=== PATIENT | male | born 1950 | race Caucasian/White ===

== ENCOUNTER 2018-07-23 13:40 | Inpatient (IN) ==
--- NOTE | 2018-07-23 15:01 | Emergency Department Note ---
Disposition General Adult HPI - General Chief complaint: ED Abdominal Pain Stated complaint: Left flank pain Time Seen by Provider: 07/23/18 14:57 Source: other Limitations: physical limitation, other - History of Present Illness Pain Scale: 0 - Related Data Home Medications Medication Instructions Recorded Confirmed Acetaminophen [Tylenol] 650 mg PO Q4HR PRN 12/04/16 03/06/17 Atorvastatin [Lipitor] 40 mg PO HS 12/04/16 03/06/17 Calcium Carbonate [Tums] 500 - 1,000 mg PO Q4HR PRN 12/04/16 03/06/17 Docusate Sodium [Stool Softener] 100 mg PO BID 12/04/16 03/06/17 Ferrous Sulfate [Iron] 325 mg PO TID 12/04/16 03/06/17 Folic Acid 1 mg PO DAILY 12/04/16 03/06/17 Levothyroxine Sodium [Levoxyl] 50 mcg PO DAILY 12/04/16 03/06/17 Loperamide [Imodium] 2 mg PO Q4HR PRN 12/04/16 03/06/17 Loratadine [Allergy Relief] 10 mg PO DAILY 12/04/16 03/06/17 Lurasidone [Latuda] 40 mg PO DAILY 12/04/16 03/06/17 Multivit,Th Iron,Other Min 1 tab PO DAILY 12/04/16 03/06/17 [Thera-M] Omeprazole [PriLOSEC] 20 mg PO DAILY 12/04/16 03/06/17 Potassium Chloride [K-Tab ER] 20 meq PO DAILY 12/04/16 03/06/17 Prochlorperazine Maleate 5 mg PO Q6H PRN 12/04/16 03/06/17 [Compazine] Rivaroxaban [Xarelto] 20 mg PO DAILY 12/04/16 03/06/17 Sennosides/Docusate Sodium 1 tab PO QAM 12/04/16 03/06/17 [Senna-S Tablet] Sertraline [Zoloft] 150 mg PO DAILY 12/04/16 03/06/17 Sucralfate [Carafate] 1 gm PO BID 12/04/16 03/06/17 MOM Conc [MILK OF MAGNESIA conc] 30 ml PO DAILY PRN 03/06/17 03/06/17 Mupirocin [Bactroban Oint] 1 appl TP BID 03/06/17 03/06/17 diazePAM [Valium] 10 - 30 mg PO DAILY PRN 03/06/17 03/06/17 Previous Rx's Medication Instructions Recorded HYDROcodone/Acet 7.5/325 mg [[place] 1 tab PO Q4-6H PRN #30 tablet 02/03/17 7.5-325 mg] Promethazine [Phenergan] 25 mg PO Q6HR PRN #8 tablet 05/11/17 Acetaminophen [Pain Reliever] 1,000 mg PO TID PRN #100 tablet 07/23/18 Ciprofloxacin [Cipro] 500 mg PO BID 7 Days #14 tablet 07/23/18 Allergies Allergy/AdvReac Type Severity Reaction Status Date / Time No Known Allergies Allergy Verified 07/23/18 11:48 Past Medical History - Past Medical History Medical history: Reports: GERD, other Surgical history: Reports: other (EGD/colonoscopy 2016) Psychiatric history: Reports: anxiety, other - Social History Smoking Status: Never smoker Smokeless Tobacco Status: No Alcohol use: Reports: none Drug use: Reports: none Physical Exam - General Limitations: physical limitation, other General appearance: alert, in no apparent distress Course Vital Signs Temperature 95.5 F L 07/23/18 14:19 Pulse Rate 69 07/23/18 14:19 Respiratory Rate 16 07/23/18 14:19 Blood Pressure 106/70 07/23/18 14:19 O2 Sat by Pulse Oximetry 96 07/23/18 14:19 Temperature 95.5 F L 07/23/18 14:19 Pulse Rate 69 07/23/18 14:19 Respiratory Rate 16 07/23/18 14:19 Blood Pressure 106/70 07/23/18 14:19 O2 Sat by Pulse Oximetry 96 07/23/18 14:19 Oxygen Delivery Oxygen Delivery Room Air
--- NOTE | 2018-07-23 15:37 | Emergency Department Note ---
Disposition Clinical Impression: Pancreatic mass, Liver metastasis, Malignant pleural effusion Chest pain Qualifiers: Chest pain type: unspecified Qualified Code(s): R07.9 - Chest pain, unspecified Anemia Qualifiers: Anemia type: unspecified type Qualified Code(s): D64.9 - Anemia, unspecified Disposition: Admitted As Inpatient Condition: Serious Referrals: Sakina Castellano MD [Primary Care Provider] - Forms: ED Satisfaction Letter, Work/School Release Abdominal Pain HPI - General Chief Complaint: ED Abdominal Pain Stated Complaint: Left flank pain Time Seen by Provider: 07/23/18 14:57 Source: patient, other Mode of arrival: ambulatory Limitations: no limitations Nursing Notes Reviewed: Yes Vital Signs Reviewed: Yes - History of Present Illness HPI Narrative: Patient presenting with caretakers for evaluation of left-sided chest/flank pain. Patient's symptoms started 3 days ago. Patient has been complaining of pain to the side but is unable to further communicate given his disability. P nataliya does not have any associated bruising or other significant signs. He has been eating and drinking well. He has not had any abnormal bowel movements. Patient has not had any other noticed abnormalities. Nose fevers or cough or sputum production. Patient did have a abdominal x-ray and urinalysis performed at urgent care which were nonspecific. Patient's did have his labs evaluated. From February patient was significantly anemic. Patient's is on Zaroxolyn no secondary to previous DVT. Patient will undergo further blood work as well as chest x-ray and EKG evaluation. I did discuss with [facility] and discussed the case with Deysi at 1520. They approve further investigation at this time. Pain Scale: 0 - Related Data Home Medications Medication Instructions Recorded Confirmed Acetaminophen [Tylenol] 650 mg PO Q4HR PRN 12/04/16 03/06/17 Atorvastatin [Lipitor] 40 mg PO HS 12/04/16 03/06/17 Calcium Carbonate [Tums] 500 - 1,000 mg PO Q4HR PRN 12/04/16 03/06/17 Docusate Sodium [Stool Softener] 100 mg PO BID 12/04/16 03/06/17 Ferrous Sulfate [Iron] 325 mg PO TID 12/04/16 03/06/17 Folic Acid 1 mg PO DAILY 12/04/16 03/06/17 Levothyroxine Sodium [Levoxyl] 50 mcg PO DAILY 12/04/16 03/06/17 Loperamide [Imodium] 2 mg PO Q4HR PRN 12/04/16 03/06/17 Loratadine [Allergy Relief] 10 mg PO DAILY 12/04/16 03/06/17 Lurasidone [Latuda] 40 mg PO DAILY 12/04/16 03/06/17 Multivit,Th Iron,Other Min 1 tab PO DAILY 12/04/16 03/06/17 [Thera-M] Omeprazole [PriLOSEC] 20 mg PO DAILY 12/04/16 03/06/17 Potassium Chloride [K-Tab ER] 20 meq PO DAILY 12/04/16 03/06/17 Prochlorperazine Maleate 5 mg PO Q6H PRN 12/04/16 03/06/17 [Compazine] Rivaroxaban [Xarelto] 20 mg PO DAILY 12/04/16 03/06/17 Sennosides/Docusate Sodium 1 tab PO QAM 12/04/16 03/06/17 [Senna-S Tablet] Sertraline [Zoloft] 150 mg PO DAILY 12/04/16 03/06/17 Sucralfate [Carafate] 1 gm PO BID 12/04/16 03/06/17 MOM Conc [MILK OF MAGNESIA conc] 30 ml PO DAILY PRN 03/06/17 03/06/17 Mupirocin [Bactroban Oint] 1 appl TP BID 03/06/17 03/06/17 diazePAM [Valium] 10 - 30 mg PO DAILY PRN 03/06/17 03/06/17 Previous Rx's Medication Instructions Recorded HYDROcodone/Acet 7.5/325 mg [[place] 1 tab PO Q4-6H PRN #30 tablet 02/03/17 7.5-325 mg] Promethazine [Phenergan] 25 mg PO Q6HR PRN #8 tablet 05/11/17 Acetaminophen [Pain Reliever] 1,000 mg PO TID PRN #100 tablet 07/23/18 Ciprofloxacin [Cipro] 500 mg PO BID 7 Days #14 tablet 07/23/18 Allergies Allergy/AdvReac Type Severity Reaction Status Date / Time No Known Allergies Allergy Verified 07/23/18 11:48 Limitations: ROS unobtainable due to patients medical condition Abdominal Pain PMH - Past Medical History Medical history: Reports: GERD, other Male Surgical History: Reports: other Psychiatric history: Reports: anxiety, other - Social History Smoking status: Never smoker Alcohol use: Reports: none Drug use: Reports: none Physical Exam General: Patient able to say yes and no, resting in wheelchair, mildly pale but in no acute distress, nontoxic. Head: Normocephalic Atraumatic Eyes: PERRL, EOMI ENT: Airway patent, no stridor Neck: supple, no meningismus Chest: Lungs clear to auscultation bilateral Cardiac: Regular rate and rhythm, no murmurs, rubs or gallops Abdomen: soft, nontender, nondistended; no guarding, rebound, or tenderness to percussion Musculoskeletal: Calves symmetric, nontender. Skin: No rash, normal skin tone. Neuro: Patient is awake alert but unable to further test orientation secondary to disability. Patient points to the left side of his lateral chest. Patient does not point to the lower ribs or specific flank pain. Patient has mild tenderness to palpation. Patient does not want to be touched in that area after initial evaluation. Patient has no tenderness to the posterior aspect of the ribs. Patient's abdomen is soft nontender to palpation. - General Limitations: physical limitation, other General appearance: alert, in no apparent distress Course Course Narrative: Abdominal x-ray performed at urgent care without specific etiology. Patient's urinalysis nonspecific at urgent care. - Reevaluation(s) Reevaluation #1: Chest x-ray concerning for effusion. Is concerned about abnormal gas pattern on the left side. CT scan was ordered. CT scan showed significant pleural effusion so chest CT was performed at same time. Blood work was obtained secondary to previous low hemoglobin of 7.8 and continued to use. Patient CT scan concerning for pancreatic mass. The counselor at law says they have been told about this but none of the records or medications or hospital records show any mention of this. Oncology was called and the patient is appropriate stay here. They also have no mention or records of him within their system. The patient does not follow with any other hospitals. Patient will be further admitted for further workup. - Consultations Consultation #1: Discussed with oncology. Patient can undergo further workup at our facility. Patient may need biopsy by interventional radiology. Consultation #2: Discussed with hospitalist. Patient accepted for admission. Vital Signs Temperature 95.5 F L 07/23/18 14:19 Pulse Rate 69 07/23/18 14:19 Respiratory Rate 16 07/23/18 14:19 Blood Pressure 106/70 07/23/18 14:19 O2 Sat by Pulse Oximetry 96 07/23/18 14:19 Temperature 97.9 F 07/23/18 18:30 Pulse Rate 78 07/23/18 18:25 Respiratory Rate 18 07/23/18 18:25 Blood Pressure 124/78 07/23/18 18:25 O2 Sat by Pulse Oximetry 94 07/23/18 18:25 Oxygen Delivery Oxygen Delivery Room Air Abdominal Pain - Medical Records Medical records reviewed: Yes I reviewed the patient's medical records. - Lab Data Lab results reviewed: Yes I reviewed the patient's lab results. Result diagrams: 07/23/18 15:44 07/23/18 15:44 Lab Results 07/23/18 07/23/18 07/23/18 Range/Units 15:40 15:44 15:44 WBC 10.4 (4.3-11.1) K/mcL RBC 3.18 L (4.19-5.50) M/mcL Hgb 7.1 L (12.9-16.9) g/dL Hct 26.5 L (37.5-50.1) % MCV 83.3 (83.0-100.0) fL MCH 22.3 L (28.0-33.3) pg MCHC 26.8 L (31.6-35.5) g/dL RDW 22.3 H (11.5-14.5) % Plt Count 409 H (140-400) K/mcL MPV 9.4 (9.4-12.4) fL Immature Gran % 0.5 (0-4) % Seg Neutrophils % 75.7 % Lymphocytes % 15.5 % Monocytes % 6.6 % Eosinophils % 1.3 % Basophils % 0.4 % Neutrophils # 7.9 (1.6-8.9) K/mcL Lymphocytes # 1.6 (0.6-4.6) K/mcL Monocytes # 0.7 (0.0-1.3) K/mcL Eosinophils # 0.1 (0.0-0.6) K/mcL Basophils # 0.0 (0.0-0.2) K/mcL Nucleated RBCs/100 WBC 0.3 H (0) /100 WBC Platelet Estimate Normal (Normal) Hypochromasia Present A (Not Present) Anisocytosis 1+ A (Not Present) Sodium 139 (136-145) mEq/L Potassium 4.5 (3.5-5.1) mEq/L Chloride 107 (98-107) mEq/L Carbon Dioxide 23 (23-29) mEq/L BUN 21 (8-23) mg/dL Creatinine 0.70 (0.70-1.30) mg/dL Est GFR ( Amer) > 60 (> 60) Est GFR (Non-Af Amer) > 60 (> 60) BUN/Creatinine Ratio 30 H (6-26) Glucose 146 H (70-105) mg/dL Calculated Osmolality 294 (280-300) Calcium 8.6 (8.6-10.3) mg/dL Total Bilirubin 0.5 (0.3-1.0) mg/dL Direct Bilirubin 0.2 (0.0-0.2) mg/dL Indirect Bilirubin 0.3 (0.0-1.2) mg/dL AST 32 (13-39) Units/L ALT 12 (7-52) Units/L Alkaline Phosphatase 131 H (34-104) Units/L Troponin I < 0.03 (< 0.04) ng/mL B-Natriuretic Peptide (Less than 100) pg/mL Serum Total Protein 7.5 (6.4-8.9) g/dL Albumin 2.8 L (3.5-5.7) g/dL Globulin 4.7 H (2.4-3.5) g/dL Albumin/Globulin Ratio 0.6 L (1.1-2.2) Lipase 50 (11-82) Units/L Blood Type B POSITIVE Antibody Screen NEGATIVE 07/23/18 Range/Units 15:44 WBC (4.3-11.1) K/mcL RBC (4.19-5.50) M/mcL Hgb (12.9-16.9) g/dL Hct (37.5-50.1) % MCV (83.0-100.0) fL MCH (28.0-33.3) pg MCHC (31.6-35.5) g/dL RDW (11.5-14.5) % Plt Count (140-400) K/mcL MPV (9.4-12.4) fL Immature Gran % (0-4) % Seg Neutrophils % % Lymphocytes % % Monocytes % % Eosinophils % % Basophils % % Neutrophils # (1.6-8.9) K/mcL Lymphocytes # (0.6-4.6) K/mcL Monocytes # (0.0-1.3) K/mcL Eosinophils # (0.0-0.6) K/mcL Basophils # (0.0-0.2) K/mcL Nucleated RBCs/100 WBC (0) /100 WBC Platelet Estimate (Normal) Hypochromasia (Not Present) Anisocytosis (Not Present) Sodium (136-145) mEq/L Potassium (3.5-5.1) mEq/L Chloride (98-107) mEq/L Carbon Dioxide (23-29) mEq/L BUN (8-23) mg/dL Creatinine (0.70-1.30) mg/dL Est GFR ( Amer) (> 60) Est GFR (Non-Af Amer) (> 60) BUN/Creatinine Ratio (6-26) Glucose (70-105) mg/dL Calculated Osmolality (280-300) Calcium (8.6-10.3) mg/dL Total Bilirubin (0.3-1.0) mg/dL Direct Bilirubin (0.0-0.2) mg/dL Indirect Bilirubin (0.0-1.2) mg/dL AST (13-39) Units/L ALT (7-52) Units/L Alkaline Phosphatase (34-104) Units/L Troponin I (< 0.04) ng/mL B-Natriuretic Peptide 58 (Less than 100) pg/mL Serum Total Protein (6.4-8.9) g/dL Albumin (3.5-5.7) g/dL Globulin (2.4-3.5) g/dL Albumin/Globulin Ratio (1.1-2.2) Lipase (11-82) Units/L Blood Type Antibody Screen - Radiology Data Radiology results reviewed: Yes I reviewed the patient's radiology results. - EKG Data EKG attestation: Yes I reviewed and interpreted this EKG. EKG results narrative: EKG shows sinus rhythm with heart rate of 96 MO 134 QRS 78 QTC 467 there is no significant ST elevations or depressions. EKG without significant change from 08/05/14. Prior EKG does have significant artifact.
[2018-07-23 16:17] LABS: Basophils % 0.4 %; Eosinophils # 0.1 K/mcL (0.0-0.6); Eosinophils % 1.3 %; Hematocrit 26.5 % (37.5-50.1); Hemoglobin 7.1 g/dL (12.9-16.9); Immature Granulocytes % 0.5 % (0-4); Lymphocytes # 1.6 K/mcL (0.6-4.6); Lymphocytes % 15.5 %; Mean Corpuscular HGB Conc 26.8 g/dL (31.6-35.5); Mean Corpuscular Hemoglobin 22.3 pg (28.0-33.3); Mean Corpuscular Volume 83.3 fL (83.0-100.0); Mean Platelet Volume 9.4 fL (9.4-12.4); Monocytes # 0.7 K/mcL (0.0-1.3); Monocytes % 6.6 %; Neutrophils # 7.9 K/mcL (1.6-8.9); Nucleated Red Blood Cells 0.3 /100 WBC (0); Platelet Count 409 K/mcL (140-400); Red Blood Count 3.18 M/mcL (4.19-5.50); Red Cell Distribution Width 22.3 % (11.5-14.5); Segmented Neutrophils % 75.7 %
[2018-07-23 16:18] LABS: Anisocytosis 1+ (Not Present); Hypochromasia Present (Not Present); Platelet Estimate Normal (Normal)
[2018-07-23 16:25] LABS: Alanine Aminotransferase 12 Units/L (7-52); Albumin 2.8 g/dL (3.5-5.7); Albumin/Globulin Ratio 0.6 (1.1-2.2); Alkaline Phosphatase 131 Units/L (34-104); Aspartate Amino Transferase 32 Units/L (13-39); BUN/Creatinine Ratio 30 (6-26); Bilirubin,Direct 0.2 mg/dL (0.0-0.2); Bilirubin,Indirect 0.3 mg/dL (0.0-1.2); Bilirubin,Total 0.5 mg/dL (0.3-1.0); Blood Urea Nitrogen 21 mg/dL (8-23); Calcium 8.6 mg/dL (8.6-10.3); Carbon Dioxide 23 mEq/L (23-29); Chloride 107 mEq/L (98-107); Globulin 4.7 g/dL (2.4-3.5); Glucose 146 mg/dL (70-105); Lipase 50 Units/L (11-82); Osmolality,Calculated 294 (280-300); Potassium 4.5 mEq/L (3.5-5.1); Sodium 139 mEq/L (136-145); Total Protein 7.5 g/dL (6.4-8.9); eGFR For Non-African Americans > 60 (> 60)
[2018-07-23 16:26] LABS: Troponin I < 0.03 ng/mL (< 0.04)
[2018-07-23] MEDS ORDERED: Haloperidol Lactate 5 MG/ML VIAL IVP ONE (18:09)
[2018-07-23] MEDS ORDERED: 0.9 % Sodium Chloride 1,000 ML IVC ONE (19:33)
[2018-07-23] MEDS ORDERED: OXYCODONE Oral CONC 10 MG/0.5 ML ORAL.SYG SL PRN (21:16)
[2018-07-23] MEDS ORDERED: Naloxone 0.4 MG/ML INJ IVP PRN (21:16)
--- NOTE | 2018-07-23 21:52 | Internal Med History&Physical ---
<Robyn Devlin - Last Filed: 07/23/18 23:16> Date of Encounter: 07/23/18 Time of Encounter: 21:15 Internal Medicine - H&P: HPI Chief complaint: abdominal pain Admitted From: Emergency Dept History of present illness: Mr. Duarte is a 67 year old male with history of developmental delay, prostate cancer on injection therapy, and previous DVT. Lives in skilled nursing. Patient cannot provide history due to developmental delay. History is obtained from caregiver in room. Patient presents for left lateral abdominal pain for 2 days. Caregiver thought it was gas and patient was given tums. This morning, he was screaming of pain. Caregiver notes he was clammy. He was taken to urgent care. Patient was given Tylenol and told its possibly a UTI and urine culture was sent. Patient continued to scream and was sent to ER. Caregiver admits he hasnt been eating as much since April. Denies any other symptoms including fever, vomiting, cough, bowel changes, urinary changes. Upon presentation to [facility], patient was afebrile and vitals stable. CT chest showed moderate-large right pleural effusion. CT abd/pelvis showed large pancreatic mass with liver mets. Oncology was consulted and patient was admitted for further workup. Past Med Surg Social Fam HX - Past Medical History Medical history: GERD, other Additional medical history: SEIZURES, PVD, HYPERTENSION, HYPERLIPIDEMIA Psychiatric history: anxiety, other - Past Surgical History Surgical History: other (EGD/colonoscopy 2016) Additional surgical history: Cleft palette and lip repair. Basal Cell Carcinoma removed 2002. END removal gallstones 2014 - Social History Smoking Status: Never smoker Smokeless Tobacco Status: No Alcohol use: none Drug use: none Internal Medicine - H&P: Meds RX: Acetaminophen [Tylenol] 650 mg PO Q4HR PRN 12/04/16 [History] RX: Atorvastatin [Lipitor] 40 mg PO HS 12/04/16 [History] RX: Calcium Carbonate [Tums] 500 - 1,000 mg PO Q4HR PRN 12/04/16 [History] RX: Docusate Sodium [Stool Softener] 100 mg PO BID 12/04/16 [History] RX: Ferrous Sulfate [Iron] 325 mg PO TID 12/04/16 [History] RX: Folic Acid 1 mg PO DAILY 12/04/16 [History] RX: Levothyroxine Sodium [Levoxyl] 50 mcg PO DAILY 12/04/16 [History] RX: Loperamide [Imodium] 2 mg PO Q4HR PRN 12/04/16 [History] RX: Loratadine [Allergy Relief] 10 mg PO DAILY 12/04/16 [History] RX: Lurasidone [Latuda] 40 mg PO DAILY 12/04/16 [History] RX: Multivit,Th Iron,Other Min [Thera-M] 1 tab PO DAILY 12/04/16 [History] RX: Omeprazole [PriLOSEC] 20 mg PO DAILY 12/04/16 [History] RX: Potassium Chloride [K-Tab ER] 20 meq PO DAILY 12/04/16 [History] RX: Prochlorperazine Maleate [Compazine] 5 mg PO Q6H PRN 12/04/16 [History] RX: Rivaroxaban [Xarelto] 20 mg PO DAILY 12/04/16 [History] RX: Sennosides/Docusate Sodium [Senna-S Tablet] 1 tab PO QAM 12/04/16 [History] RX: Sertraline [Zoloft] 150 mg PO DAILY 12/04/16 [History] RX: Sucralfate [Carafate] 1 gm PO BID 12/04/16 [History] RX: HYDROcodone/Acet 7.5/325 mg [[place] 7.5-325 mg] 1 tab PO Q4-6H PRN #30 tablet 02/03/17 [Rx] RX: MOM Conc [MILK OF MAGNESIA conc] 30 ml PO DAILY PRN 03/06/17 [History] RX: Mupirocin [Bactroban Oint] 1 appl TP BID 03/06/17 [History] RX: diazePAM [Valium] 10 - 30 mg PO DAILY PRN 03/06/17 [History] Promethazine [Phenergan] 25 mg PO Q6HR PRN #8 tablet 05/11/17 [Rx] Ciprofloxacin [Cipro] 500 mg PO BID 7 Days #14 tablet 07/23/18 [Rx] RX: Acetaminophen [Pain Reliever] 1,000 mg PO TID PRN #100 tablet 07/23/18 [Rx] Allergy/AdvReac Type Severity Reaction Status Date / Time No Known Allergies Allergy Verified 07/23/18 11:48 ROS unobtainable: other (developmental delay ) All Systems PM: A 10-system review of systems was performed and is negative for pertinent findings except as documented above in the HPI. - Constitutional Vitals: Temp Pulse Resp BP Pulse Ox 97.9 F 68 18 99/68 97 07/23/18 18:30 07/23/18 20:30 07/23/18 20:30 07/23/18 20:30 07/23/18 20:30 General appearance: Absent: cooperative Exam: no acute distress. Comfortably eating sandwich and drinking coke - Head Head exam: Present: atraumatic, normal inspection, normocephalic - Eye Eye exam: Present: EOMI, PERRL, sclera anicteric - Neck Neck exam general surgery: Present: normal inspection - Respiratory Respiratory exam: Present: CTAB. Absent: respiratory distress, tachypnea - Cardiovascular Cardiovascular exam: Present: RRR, +S1, +S2. Absent: systolic murmur, tachycardia - GI/Abdominal GI/Abdominal exam: Present: distended, mass (epigastric), normal bowel sounds, no peritoneal signs. Absent: tenderness - Extremities Exam Extremities exam: Present: pedal edema (left ), warm. Absent: calf tenderness, cyanotic, joint swelling, mottling - Neurological Exam Neurological exam: Present: CN II-XII intact - Skin Skin exam: Present: dry, intact, warm Internal Med - H&P Results - Labs CBC & Chem 7: 07/23/18 15:44 07/23/18 15:44 Labs: Short CBC 07/23/18 Range/Units 15:44 WBC 10.4 (4.3-11.1) K/mcL Hgb 7.1 L (12.9-16.9) g/dL Hct 26.5 L (37.5-50.1) % Plt Count 409 H (140-400) K/mcL Neutrophils # 7.9 (1.6-8.9) K/mcL BMP 07/23/18 15:44 Sodium 139 Potassium 4.5 Chloride 107 Carbon Dioxide 23 BUN 21 Creatinine 0.70 Glucose 146 H Calcium 8.6 Cardiac Enzymes 07/23/18 Range/Units 15:44 Troponin I < 0.03 (< 0.04) ng/mL Liver Function 07/23/18 Range/Units 15:44 Total Bilirubin 0.5 (0.3-1.0) mg/dL Direct Bilirubin 0.2 (0.0-0.2) mg/dL AST 32 (13-39) Units/L ALT 12 (7-52) Units/L Alkaline Phosphatase 131 H (34-104) Units/L Albumin 2.8 L (3.5-5.7) g/dL - Impressions ITS Impressions Chest CT 07/23/18 00:00 IMPRESSION: Moderate to large right pleural effusion. Etiology is not entirely clear, but given the findings elsewhere, may represent a malignant effusion. Left upper lobe nodule measuring 7 mm. Please refer to the concurrent CT abdomen pelvis report. D/ / Elias Jaime MD / Elias Jaime MD Interpreting Provider: Elias Jaime MD Chest X-Ray 07/23/18 15:29 IMPRESSION: Limited rotated portable chest x-ray. Right greater than left bilateral airspace disease suspected to be due to edema and atelectasis, less likely pneumonia. Moderate-sized right pleural effusion. D/ / Aftab Davalos MD / Aftab Davalos MD Interpreting Provider: Aftab Davalos MD Abdomen/Pelvis CT 07/23/18 17:19 IMPRESSION: Large mass seen within the midportion of the abdomen likely arising from the pancreas measuring 19 cm x 14 cm in size which is compressing the stomach and duodenum. There is no bowel obstruction. Significant distention of the gallbladder likely secondary to pancreatic mass. Metastatic lesion seen to the right lobe of the liver measuring 7.4 cm x 6.1 cm in size. D/ / 07/23/2018 18:25:37 Be Chambers MD / jean-pierre Interpreting Provider: Be Chambers MD - Assessment and Plan (1) Pancreatic mass Current Visit: Yes Status: Acute Assessment and plan: CT abd/pelvis shows large pancreatic mass compressing stomach and duodenum Check tumor markers: CA19-9, AFP, CEA Oncology consulted Consult GI (2) Liver metastasis Current Visit: Yes Status: Acute Assessment and plan: CT abd/pelvis shows large pancreatic mass with liver mets See plan above (3) Malignant pleural effusion Current Visit: Yes Status: Acute Assessment and plan: CT chest shows moderate-large right pleural effusion Suspect malignant considering large pancreatic mass found on imaging Consult IR for diagnostic thoracentesis Pleural fluid studies including glucose, pH, LDH, gram stain, culture, cell count, and cytology NPO after midnight, IVF (4) Anemia Current Visit: Yes Status: Chronic Assessment and plan: Hb of 7.1 Appears chronic. 5 months ago, Hb of 7.8 Monitor Transfuse if Hb <7.0 Qualifiers: Anemia type: unspecified type Qualified Code(s): D64.9 - Anemia, unspecified (5) History of DVT (deep vein thrombosis) Current Visit: Yes Status: Chronic Assessment and plan: History of DVT On xarelto Hold xarelto in anticipation of thoracentesis (6) Prostate cancer Current Visit: Yes Status: Acute Assessment and plan: History of prostate cancer On injection therapy Last injection in April (7) History of developmental delay Current Visit: Yes Status: Chronic Assessment and plan: History of developmental delay - Time Spent With Patient Total time spent is greater than 50% in coordination of care (as documented) at patient's floor/unit and/or counseling patient: <Hakeem Balderrama - Last Filed: 07/24/18 00:07> Date of Encounter: 07/23/18 All Systems PM: A 10-system review of systems was performed and is negative for pertinent findings except as documented above in the HPI. - Constitutional Vitals: Temp Pulse Resp BP Pulse Ox 97.9 F 68 18 99/68 97 07/23/18 18:30 07/23/18 20:30 07/23/18 20:30 07/23/18 20:30 07/23/18 20:30 Internal Med - H&P Results - Labs CBC & Chem 7: 07/23/18 15:44 07/23/18 15:44 Labs: Short CBC 07/23/18 Range/Units 15:44 WBC 10.4 (4.3-11.1) K/mcL Hgb 7.1 L (12.9-16.9) g/dL Hct 26.5 L (37.5-50.1) % Plt Count 409 H (140-400) K/mcL Neutrophils # 7.9 (1.6-8.9) K/mcL BMP 07/23/18 15:44 Sodium 139 Potassium 4.5 Chloride 107 Carbon Dioxide 23 BUN 21 Creatinine 0.70 Glucose 146 H Calcium 8.6 Cardiac Enzymes 07/23/18 Range/Units 15:44 Troponin I < 0.03 (< 0.04) ng/mL Liver Function 07/23/18 Range/Units 15:44 Total Bilirubin 0.5 (0.3-1.0) mg/dL Direct Bilirubin 0.2 (0.0-0.2) mg/dL AST 32 (13-39) Units/L ALT 12 (7-52) Units/L Alkaline Phosphatase 131 H (34-104) Units/L Albumin 2.8 L (3.5-5.7) g/dL - Impressions ITS Impressions Chest CT 07/23/18 00:00 IMPRESSION: Moderate to large right pleural effusion. Etiology is not entirely clear, but given the findings elsewhere, may represent a malignant effusion. Left upper lobe nodule measuring 7 mm. Please refer to the concurrent CT abdomen pelvis report. D/ / Elias Jaime MD / Elias Jaime MD Interpreting Provider: Elias Jaime MD Chest X-Ray 07/23/18 15:29 IMPRESSION: Limited rotated portable chest x-ray. Right greater than left bilateral airspace disease suspected to be due to edema and atelectasis, less likely pneumonia. Moderate-sized right pleural effusion. D/ / Aftab Davalos MD / Aftab Davalos MD Interpreting Provider: Aftab Davalos MD Abdomen/Pelvis CT 07/23/18 17:19 IMPRESSION: Large mass seen within the midportion of the abdomen likely arising from the pancreas measuring 19 cm x 14 cm in size which is compressing the stomach and duodenum. There is no bowel obstruction. Significant distention of the gallbladder likely secondary to pancreatic mass. Metastatic lesion seen to the right lobe of the liver measuring 7.4 cm x 6.1 cm in size. D/ / 07/23/2018 18:25:37 Be Chambers MD / jean-pierre Interpreting Provider: Be Chambers MD - Time Spent With Patient Total time spent is greater than 50% in coordination of care (as documented) at patient's floor/unit and/or counseling patient: Greater than 35 minutes - Attending Attestation I performed a history and physical exam of the patient and discussed management with the resident. I reviewed the resident's note and agree with the documented findings and plan of care. Ankush Duarte is a 67 year old man with developmental delay, a history of DVT on rivaroxaban who was diagnosed with prostate adenocarcinoma in February 2017 presenting from his skilled nursing with complaints of left flank pain for 3 days. Of note, review of old records reveal that he complained of left sided stomach pain in October 2017, taken to urgent care and seen to have an air-fluid level on abdominal xray and therefore deemed to have constipation, Rx senna and MoM. Here, he is seen to be anemic with a Hgb 7.1, CXR depictive of a right pleural effusion and an abnormal abdominal gas pattern that prompted a f/u CT which r eveals a very large mass seemingly emanating from the pancreas and compressing the stomach and duodenum with a metastatic lesion to the liver. It is unclear if this was already a known entity as we have no prior record of this. Physical exam remarkable for a protuberant abdomen that is notably distended as well as a palpable ball-like mass on the epigastric area. We will admit for further evaluation. Will consult IR for therapeutic and diagnostic thoracentesis; transfuse pRBC if he drops below 7.0 to optimize his oxygen carrying capacity; consult oncology, GI and IR. Check CA 19-9, CEA and AFP. Note: The patients guardianship service is [employer].
[2018-07-24] MEDS: 0.9 % Sodium Chloride 1,000 ML IVC SCH (01:10)
--- NOTE | 2018-07-24 08:28 | Internal Med Progress Note ---
Hospitalist Progress Note - Encounter Date of Encounter: 07/24/18 Time of Encounter: 08:00 - Subjective Interval History: No acute events overnight. Hemoglobin low this am - Exam Vitals: Temp Pulse Resp BP Pulse Ox 98.8 F 85 18 110/71 92 07/24/18 06:33 07/24/18 06:33 07/24/18 06:33 07/24/18 06:33 07/24/18 06:33 Exam: General appearance: AAOx 2 Head exam: Present: normocephalic Respiratory exam: Present: CTAB. Absent: accessory muscle use, rales, rhonchi, wheezes Cardiovascular exam: Present: RRR, +S1, +S2. Absent: diastolic murmur, gallop, rubs, systolic murmur GI/Abdominal exam: Present: Epigastric tenderness to palpation on exam Extremities exam: Has contractures Neurological exam: Present: alert, - Assessment and Plan (1) Pancreatic mass Current Visit: Yes Status: Acute Assessment and Plan: CT abd/pelvis shows large pancreatic mass compressing stomach and duodenum Check tumor markers: CA19-9, AFP, CEA Oncology consulted.Patient has poor prognosis and palliative care has been consulted (2) Liver metastasis Current Visit: Yes Status: Acute Assessment and Plan: CT abd/pelvis shows large pancreatic mass with liver mets See plan above (3) Malignant pleural effusion Current Visit: Yes Status: Acute Assessment and Plan: CT chest shows moderate-large right pleural effusion Suspect malignant considering large pancreatic mass found on imaging Seen by pulmonary this am for thoracentesis which may not be feasible at bedside due to patient's inability to follow commands May need biopsy and thoracentesis under anesthesia if aggressive work up is pursued (4) Anemia Current Visit: Yes Status: Acute Assessment and Plan: Anemia possibly secondary to acute GI bleed vs due to malignancy Hemglobin dropped to 6.0 from 7.1 yesterday. transfuse [address] Mcgarry consulted for endoscopy but EGD not feasible due to large pancreatic mass (5) History of developmental delay Current Visit: Yes Status: Chronic Assessment and Plan: History of developmental delay (6) History of DVT (deep vein thrombosis) Current Visit: Yes Status: Chronic Assessment and Plan: History of DVT On xarelto Hold xarelto due to possible GI bleed DVT Prophylaxis: SCD - Time Spent with Patient Total time spent is greater than 50% in coordination of care (as documented) at patient's floor/unit and/or counseling patient: Internal Medicine: Result - Labs CBC & Chem 7: 07/24/18 10:40 07/24/18 10:40 Labs: Short CBC 07/23/18 Range/Units 15:44 WBC 10.4 (4.3-11.1) K/mcL Hgb 7.1 L (12.9-16.9) g/dL Hct 26.5 L (37.5-50.1) % Plt Count 409 H (140-400) K/mcL Neutrophils # 7.9 (1.6-8.9) K/mcL BMP 07/23/18 15:44 Sodium 139 Potassium 4.5 Chloride 107 Carbon Dioxide 23 BUN 21 Creatinine 0.70 Glucose 146 H Calcium 8.6 Cardiac Enzymes 07/23/18 Range/Units 15:44 Troponin I < 0.03 (< 0.04) ng/mL Liver Function 07/23/18 Range/Units 15:44 Total Bilirubin 0.5 (0.3-1.0) mg/dL Direct Bilirubin 0.2 (0.0-0.2) mg/dL AST 32 (13-39) Units/L ALT 12 (7-52) Units/L Alkaline Phosphatase 131 H (34-104) Units/L Albumin 2.8 L (3.5-5.7) g/dL - Impressions Impressions Chest CT 07/23/18 00:00 IMPRESSION: Moderate to large right pleural effusion. Etiology is not entirely clear, but given the findings elsewhere, may represent a malignant effusion. Left upper lobe nodule measuring 7 mm. Please refer to the concurrent CT abdomen pelvis report. D/ / Elias Jaime MD / Elias Jaime MD Interpreting Provider: Elias Jaime MD Chest X-Ray 07/23/18 15:29 IMPRESSION: Limited rotated portable chest x-ray. Right greater than left bilateral airspace disease suspected to be due to edema and atelectasis, less likely pneumonia. Moderate-sized right pleural effusion. D/ / Aftab Davalos MD / Aftab Davalos MD Interpreting Provider: Aftab Davalos MD Abdomen/Pelvis CT 07/23/18 17:19 IMPRESSION: Large mass seen within the midportion of the abdomen likely arising from the pancreas measuring 19 cm x 14 cm in size which is compressing the stomach and duodenum. There is no bowel obstruction. Significant distention of the gallbladder likely secondary to pancreatic mass. Metastatic lesion seen to the right lobe of the liver measuring 7.4 cm x 6.1 cm in size. D/ / 07/23/2018 18:25:37 Be Chambers MD / jean-pierre Interpreting Provider: Be Chambers MD Consult Discharge Plan - Plan Referrals: Sakina Castellano MD [Primary Care Provider] - (4) Anemia Qualifiers: Anemia type: unspecified type Qualified Code(s): D64.9 - Anemia, unspecified
[2018-07-24] MEDS ORDERED: *HR* LORazepam 2 MG/ML VIAL IVP PRN (09:53)
[2018-07-24] MEDS ORDERED: *HR* LORazepam 2 MG/ML VIAL IVP ONE (10:19)
--- NOTE | 2018-07-24 10:25 | Pulmonology Consult Note ---
Date of Encounter: 07/24/18 Time of Encounter: 10:24 Assessment and Plan (1) Pleural effusion Current Visit: Yes Status: Acute In conclusion this is a 67-year-old gentleman with a past medical history of MRDD complicated by his periods of severe agitation. Per nursing staff it took dosing of Ativan to get a simple blood draws patient was noncooperative. Given inability to have cooperation with the patient bedside thoracentesis is deemed unsafe. I suspect patient will need MAC or general anesthesia to get biopsy (likely done by IR) from pancreatic lesion and recommend coupling thoracentesis during that time. Patient can be evaluated in the future for Pleurx catheter placement based upon clinical course. Given that the patient is quite comf ortable from a respiratory standpoint and without any oxygen requirement there is no urgency to perform thoracentesis at this time which would require additional anesthesia. Agree with oncology and palliative care consultation I gave my impression and recommendations directly with the primary hospitalist Dr Aranda Thank you for the consultation please call with any questions (2) Pancreatic mass Current Visit: Yes Status: Acute (3) History of developmental delay Current Visit: Yes Status: Chronic History of Present Illness Consult date: 07/24/18 Requesting physician: Raul Aranda Reason for consult: pleural effusion Chief complaint: Abdominal Pain History of present illness: The patient is a 67-year-old gentleman with a past medical history of MRDD he was admitted for abdominal pain patient lives in a detention and is unable to provide any medical history in fact his been severely agitated throughout the day requiring benzodiazepine administration. There is no caregiver at bedside and thus medical history was obtained from the medical record the primary hospitalist and his nurse. Per report patient had been experiencing right-sided abdominal pain for several days leading up to admission a CT of the abdomen was performed in the emergency department which was notable for a pancreatic mass with suspected liver metastatic disease as well as a right-sided moderate to large pleural effusion concerning for malignant pleural effusion. Pulmonary was consulted for further evaluation of this. Patient currently not requiring any oxygen and appears comfortable in the bed. Although I asked him several different question he was unable to provide any answers. Of note patient per history has venous thromboembolism in the past and has been prescribed several to I am not sure the last dose of this medication but does not appear to be getting it since he has been here Past Med Surg Social Fam HX - Past Medical History Medical history: GERD, other Additional medical history: SEIZURES, PVD, HYPERTENSION, HYPERLIPIDEMIA Psychiatric history: anxiety, other - Past Surgical History Surgical History: other (EGD/colonoscopy 2016) Additional surgical history: Cleft palette and lip repair. Basal Cell Carcinoma removed 2002. END removal gallstones 2014 - Social History Smoking Status: Never smoker Smokeless Tobacco Status: No Alcohol use: none Drug use: none Medications and Allergies Acetaminophen [Tylenol] 650 mg PO Q4HR PRN 12/04/16 [History] Atorvastatin [Lipitor] 40 mg PO HS 12/04/16 [History] Calcium Carbonate [Tums] 500 - 1,000 mg PO Q4HR PRN 12/04/16 [History] Docusate Sodium [Stool Softener] 100 mg PO BID 12/04/16 [History] Ferrous Sulfate [Iron] 325 mg PO TID 12/04/16 [History] Folic Acid 1 mg PO DAILY 12/04/16 [History] Levothyroxine Sodium [Levoxyl] 50 mcg PO DAILY 12/04/16 [History] Loperamide [Imodium] 2 mg PO Q4HR PRN 12/04/16 [History] Loratadine [Allergy Relief] 10 mg PO DAILY 12/04/16 [History] Lurasidone [Latuda] 40 mg PO DAILY 12/04/16 [History] Multivit,Th Iron,Other Min [Thera-M] 1 tab PO DAILY 12/04/16 [History] Omeprazole [PriLOSEC] 20 mg PO DAILY 12/04/16 [History] Potassium Chloride [K-Tab ER] 20 meq PO DAILY 12/04/16 [History] Prochlorperazine Maleate [Compazine] 5 mg PO Q6H PRN 12/04/16 [History] Rivaroxaban [Xarelto] 20 mg PO DAILY 12/04/16 [History] Sennosides/Docusate Sodium [Senna-S Tablet] 1 tab PO QAM 12/04/16 [History] Sertraline [Zoloft] 150 mg PO DAILY 12/04/16 [History] Sucralfate [Carafate] 1 gm PO BID 12/04/16 [History] HYDROcodone/Acet 7.5/325 mg [[place] 7.5-325 mg] 1 tab PO Q4-6H PRN #30 tablet 02/03/17 [Rx] MOM Conc [MILK OF MAGNESIA conc] 30 ml PO DAILY PRN 03/06/17 [History] Mupirocin [Bactroban Oint] 1 appl TP BID 03/06/17 [History] diazePAM [Valium] 10 - 30 mg PO DAILY PRN 03/06/17 [History] Promethazine [Phenergan] 25 mg PO Q6HR PRN #8 tablet 05/11/17 [Rx] Acetaminophen [Pain Reliever] 1,000 mg PO TID PRN #100 tablet 07/23/18 [Rx] Ciprofloxacin [Cipro] 500 mg PO BID 7 Days #14 tablet 07/23/18 [Rx] Allergy/AdvReac Type Severity Reaction Status Date / Time No Known Allergies Allergy Verified 07/23/18 11:48 All Systems: The remainder of the systems were reviewed and are negative Physical Examination Vital Signs: Vital Signs, Last 4 Hours Temp Pulse Resp BP Pulse Ox 07/24/18 06:33 98.8 F 85 18 110/71 92 General appearance: no acute distress ENT: other (Poor dentition) Neck: supple, no JVD Effort: normal Auscultation: right: clear Cardiovascular: regular rate and rhythm Gastrointestinal: normoactive bowel sounds, soft, other (There was no grimace or guarding with deep palpation over the epigastrium or right upper quadrant) Extremities: edema (Trace bilateral pitting edema) Musculoskeletal: other (Long-standing contractures noted in the right upper extremity) pupils equal and round, unable to assess due to mental status, other other (Appears comfortable at this time) Results - Laboratory Findings CBC and BMP: 07/24/18 10:40 07/24/18 10:40 Abnormal lab findings: Abnormal lab results RBC 3.18 M/mcL (4.19-5.50) L 07/23/18 15:44 Hgb 7.1 g/dL (12.9-16.9) L 07/23/18 15:44 Hct 26.5 % (37.5-50.1) L 07/23/18 15:44 MCH 22.3 pg (28.0-33.3) L 07/23/18 15:44 MCHC 26.8 g/dL (31.6-35.5) L 07/23/18 15:44 RDW 22.3 % (11.5-14.5) H 07/23/18 15:44 Plt Count 409 K/mcL (140-400) H 07/23/18 15:44 Nucleated RBCs/100 WBC 0.3 /100 WBC (0) H 07/23/18 15:44 Hypochromasia Present (Not Present) A 07/23/18 15:44 Anisocytosis 1+ (Not Present) A 07/23/18 15:44 BUN/Creatinine Ratio 30 (6-26) H 07/23/18 15:44 Glucose 146 mg/dL (70-105) H 07/23/18 15:44 Alkaline Phosphatase 131 Units/L (34-104) H 07/23/18 15:44 Albumin 2.8 g/dL (3.5-5.7) L 07/23/18 15:44 Globulin 4.7 g/dL (2.4-3.5) H 07/23/18 15:44 Albumin/Globulin Ratio 0.6 (1.1-2.2) L 07/23/18 15:44 - Diagnostic Findings Chest x-ray: report reviewed, image reviewed - Clinical Findings Intake & Output: Intake & Output 07/23/18 07/24/18 07/24/18 23:59 07:59 15:59 Intake Total 1000 / 1000 120 / 120 Output Total 200 / 200 Balance 1000 / 1000 -200 / -200 120 / 120 Consult Discharge Plan - Plan Referrals: Sakina Castellano MD [Primary Care Provider] -
[2018-07-24 10:57] LABS: Basophils % 0.4 %
[2018-07-24 10:59] LABS: Eosinophils # 0.3 K/mcL (0.0-0.6); Eosinophils % 4.2 %; Hematocrit 21.9 % (37.5-50.1); Immature Granulocytes % 0.6 % (0-4); Immature Reticulocyte % 30.3 % (11.0-38.0); Lymphocytes # 0.8 K/mcL (0.6-4.6); Lymphocytes % 11.7 %; Mean Corpuscular HGB Conc 27.4 g/dL (31.6-35.5); Mean Corpuscular Hemoglobin 22.1 pg (28.0-33.3); Mean Corpuscular Volume 80.8 fL (83.0-100.0); Mean Platelet Volume 10.1 fL (9.4-12.4); Monocytes # 0.4 K/mcL (0.0-1.3); Monocytes % 5.4 %; Neutrophils # 5.6 K/mcL (1.6-8.9); Nucleated Red Blood Cells 0.3 /100 WBC (0); Platelet Count 372 K/mcL (140-400); Red Blood Count 2.71 M/mcL (4.19-5.50); Red Cell Distribution Width 22.5 % (11.5-14.5); Retculocyte # 0.06 M/mcL (0.05-0.10); Reticulocyte % 2.1 % (1.6-2.8); Segmented Neutrophils % 77.7 %
[2018-07-24 11:10] LABS: INR 1.3; Prothrombin Time 14.5 Seconds (9.4-12.1)
[2018-07-24 11:12] LABS: Activated Partial Thrombo Time 27.5 Seconds (26.0-36.0)
[2018-07-24 11:15] LABS: BUN/Creatinine Ratio 28 (6-26); Blood Urea Nitrogen 17 mg/dL (8-23); Calcium 8.1 mg/dL (8.6-10.3); Carbon Dioxide 23 mEq/L (23-29); Chloride 109 mEq/L (98-107); Glucose 94 mg/dL (70-105); Iron 21 mcg/dL (65-175); Lactate Dehydrogenase 464 Units/L (140-271); Osmolality,Calculated 291 (280-300); Potassium 4.5 mEq/L (3.5-5.1); Sodium 140 mEq/L (136-145); eGFR For Non-African Americans > 60 (> 60)
--- NOTE | 2018-07-24 11:16 | Palliative - Consult Note ---
Date of Encounter: 07/24/18 Time of Encounter: 11:00 - Assessment and Plan (1) Abdominal pain Current Visit: No Status: Acute Assessment and plan: He does have low dose Oxycodone ordered for discomfort, has not utilized as of my visit, and denies pain at this time. Qualifiers: Abdominal location: unspecified location Qualified Code(s): R10.9 - Unspecified abdominal pain (2) Encounter for palliative care Current Visit: Yes Status: Acute Assessment and plan: Spoke with case monitor Martina. Patient is assigned to [employer] ([employer]) and has a guardian, however, his guardian retired in May, and he has yet to be assigned an official guardian of person. [employer] billing collections specialist can give consent for procedures to be done, however, to discuss half-way goals of care and code status, will have to see who will be assigned, which will not be done until Thursday. I gave Martina my contact information when that is established. She stated as of now, he is a full code. For [employer], after discussion with that guardian, they obtain appropriate documents from the state that have to be completed and faxed, then this is reviewed and determined if patient would be transitioned to DNR. It does appear most likely has a terminal metastatic diagnosis, but awaiting biopsy. Oncology has been consulted as well for recommendation. He is not likely a good candidate for treatment. With patient agitation, physicians involved in his care discussing possibly biopsy/thoracentesis under anesthesia. (3) Pancreatic mass Current Visit: Yes Status: Acute (4) Liver metastasis Current Visit: Yes Status: Acute (5) Malignant pleural effusion Current Visit: Yes Status: Acute (6) Prostate cancer Current Visit: Yes Status: Acute Palliative-CN HPI - Data of Consult Consult date: 07/24/18 Requesting Physician: Veronique De La O MD Primary Care Provider: Sakina Castellano - Consult Narrative History of present illness: Mr. Duarte is a 67 year old male who presented to ER with 2 day history of abd pain. He is developmentally delayed and resides at [facility]. No caregiver present, so information taken from chart review and by case monitor via telephone. His pain worsened to the point he was yelling at home, so was taken to urgent care. His pain worsened, and was brought to ER. Apparently has had decreased intake since April. CT imaging demonstrated large right pleural effusion, and large pancreatic mass compressing the duodenum and stomach, and also large liver lesion. He has history of DVT and prostate cancer. Upon my visit, lab in room attempting to get blood, and patient is agitated. He is HOLY CROSS, but is able to communicate. Denies any pain at present. Color is pale, and abd distended. I spoke with his case monitor Martina ([phone]) briefly, refer to palliative encounter. CC: Veronique De La O MD - Time Spent with Patient Time: Total time spent is greater than 50% in coordination of care (as documented) at patient's floor/unit and/or counseling patient: Time with patient: 45 minutes Past Med Surg Social Fam HX - Past Medical History Medical history: GERD, other Additional medical history: SEIZURES, PVD, HYPERTENSION, HYPERLIPIDEMIA Psychiatric history: anxiety, other - Past Surgical History Surgical History: other (EGD/colonoscopy 2016) Additional surgical history: Cleft palette and lip repair. Basal Cell Carcinoma removed 2002. END removal gallstones 2014 - Social History Smoking Status: Never smoker Smokeless Tobacco Status: No Alcohol use: none Drug use: none Medications and Allergies Acetaminophen [Tylenol] 650 mg PO Q4HR PRN 12/04/16 [History] Atorvastatin [Lipitor] 40 mg PO HS 12/04/16 [History] Calcium Carbonate [Tums] 500 - 1,000 mg PO Q4HR PRN 12/04/16 [History] Docusate Sodium [Stool Softener] 100 mg PO BID 12/04/16 [History] Ferrous Sulfate [Iron] 325 mg PO TID 12/04/16 [History] Folic Acid 1 mg PO DAILY 12/04/16 [History] Levothyroxine Sodium [Levoxyl] 50 mcg PO DAILY 12/04/16 [History] Loperamide [Imodium] 2 mg PO Q4HR PRN 12/04/16 [History] Loratadine [Allergy Relief] 10 mg PO DAILY 12/04/16 [History] Lurasidone [Latuda] 40 mg PO DAILY 12/04/16 [History] Multivit,Th Iron,Other Min [Thera-M] 1 tab PO DAILY 12/04/16 [History] Omeprazole [PriLOSEC] 20 mg PO DAILY 12/04/16 [History] Potassium Chloride [K-Tab ER] 20 meq PO DAILY 12/04/16 [History] Prochlorperazine Maleate [Compazine] 5 mg PO Q6H PRN 12/04/16 [History] Rivaroxaban [Xarelto] 20 mg PO DAILY 12/04/16 [History] Sennosides/Docusate Sodium [Senna-S Tablet] 1 tab PO QAM 12/04/16 [History] Sertraline [Zoloft] 150 mg PO DAILY 12/04/16 [History] Sucralfate [Carafate] 1 gm PO BID 12/04/16 [History] HYDROcodone/Acet 7.5/325 mg [[place] 7.5-325 mg] 1 tab PO Q4-6H PRN #30 tablet 02/03/17 [Rx] MOM Conc [MILK OF MAGNESIA conc] 30 ml PO DAILY PRN 03/06/17 [History] Mupirocin [Bactroban Oint] 1 appl TP BID 03/06/17 [History] diazePAM [Valium] 10 - 30 mg PO DAILY PRN 03/06/17 [History] Promethazine [Phenergan] 25 mg PO Q6HR PRN #8 tablet 05/11/17 [Rx] Acetaminophen [Pain Reliever] 1,000 mg PO TID PRN #100 tablet 07/23/18 [Rx] Ciprofloxacin [Cipro] 500 mg PO BID 7 Days #14 tablet 07/23/18 [Rx] Allergy/AdvReac Type Severity Reaction Status Date / Time No Known Allergies Allergy Verified 07/23/18 11:48 ROS unobtainable: due to mental status Palliative Care-Exam - Constitutional Vitals: Temp Pulse Resp BP Pulse Ox 97.5 F L 85 17 109/69 90 07/24/18 11:04 07/24/18 11:04 07/24/18 11:04 07/24/18 11:04 07/24/18 11:04 General appearance: Present: mild distress - Head Head Exam: Present: normal inspection, normocephalic - Eye Eye exam: Present: normal appearance, PERRL - Respiratory Additional comments: Breath sounds diminished. Shallow inspiratory effort - Cardiovascular Cardiovascular exam: Present: +S1, +S2 - GI/Abdominal Exam GI/Abdominal exam: Present: diminished bowel sounds, distended, firm - Extremities Exam Extremities exam: Present: normal capillary refill, normal inspection Additional comments: Right hand/arm with contracture - Neurological Exam Neurological exam: Present: alert Additional comments: Oriented to name only. HOLY CROSS. Agitated and not following commands. Is drinking soda with assistance. - Skin Skin exam: Present: dry, pallor, warm Internal Medicine - CN: Reslt - Labs CBC & Chem 7: 07/23/18 15:44 07/23/18 15:44 Labs: Short CBC 07/23/18 Range/Units 15:44 WBC 10.4 (4.3-11.1) K/mcL Hgb 7.1 L (12.9-16.9) g/dL Hct 26.5 L (37.5-50.1) % Plt Count 409 H (140-400) K/mcL Neutrophils # 7.9 (1.6-8.9) K/mcL BMP 07/23/18 15:44 Sodium 139 Potassium 4.5 Chloride 107 Carbon Dioxide 23 BUN 21 Creatinine 0.70 Glucose 146 H Calcium 8.6 Cardiac Enzymes 07/23/18 Range/Units 15:44 Troponin I < 0.03 (< 0.04) ng/mL Liver Function 07/23/18 Range/Units 15:44 Total Bilirubin 0.5 (0.3-1.0) mg/dL Direct Bilirubin 0.2 (0.0-0.2) mg/dL AST 32 (13-39) Units/L ALT 12 (7-52) Units/L Alkaline Phosphatase 131 H (34-104) Units/L Albumin 2.8 L (3.5-5.7) g/dL - Impressions Impressions Chest CT 07/23/18 00:00 IMPRESSION: Moderate to large right pleural effusion. Etiology is not entirely clear, but given the findings elsewhere, may represent a malignant effusion. Left upper lobe nodule measuring 7 mm. Please refer to the concurrent CT abdomen pelvis report. D/ / Elias Jaime MD / Elias Jaime MD Interpreting Provider: Elias Jaime MD Chest X-Ray 07/23/18 15:29 IMPRESSION: Limited rotated portable chest x-ray. Right greater than left bilateral airspace disease suspected to be due to edema and atelectasis, less likely pneumonia. Moderate-sized right pleural effusion. D/ / Aftab Davalos MD / Aftab Davalos MD Interpreting Provider: Aftab Davlaos MD Abdomen/Pelvis CT 07/23/18 17:19 IMPRESSION: Large mass seen within the midportion of the abdomen likely arising from the pancreas measuring 19 cm x 14 cm in size which is compressing the stomach and duodenum. There is no bowel obstruction. Significant distention of the gallbladder likely secondary to pancreatic mass. Metastatic lesion seen to the right lobe of the liver measuring 7.4 cm x 6.1 cm in size. D/ / 07/23/2018 18:25:37 Be Chambers MD / [email or web address] Interpreting Provider: Be Chambers MD Consult Discharge Plan - Plan Referrals: Sakina Castellano MD [Primary Care Provider] - Palliative Quality Palliative Quality: Screen for Code Status: NA (will have to f/u with [employer]), Screen for Goals of Care: NA, Screen for Pain: Yes, If Pain Regimen Started, Initiate Bowel Regimen: NA, Screen for Nausea/Vomitting: Yes Code Status: 07/23/18 21:16 Resuscitation Status: Active [RES] Routine Comment: Resuscitation Status: Full Code
[2018-07-24 11:33] LABS: Ferritin 1467 ng/mL (20-250)
[2018-07-24 11:37] LABS: Anisocytosis 1+ (Not Present); Hypochromasia Present (Not Present); Platelet Estimate Normal (Normal)
[2018-07-24 11:38] LABS: Poikilocytosis 1+ (Not Present)
[2018-07-24] MEDS ORDERED: 0.9 % Sodium Chloride 250 ML ONE ×2 (12:16→18:14)
--- NOTE | 2018-07-24 12:59 | Internal Medicine Consult Note ---
Date of Encounter: 07/24/18 Time of Encounter: 12:57 (GI Coverage) - Assessment and Plan (1) Pancreatic mass Current Visit: Yes Status: Acute Assessment and plan: This appears to be quite large, and obviously with what appears to be metastatic disease. This gentleman will not benefit from upper endoscopy. He requires comfort measures and hospice type care at this time. He does have a anemia, I would support this as need be until further decision making to be had. He will be transfused today 2 units. Overall, prognosis is extremely poor. (2) Liver metastasis Current Visit: Yes Status: Acute (3) Pleural effusion Current Visit: Yes Status: Acute Assessment and plan: Most likely metastatic in character. (4) Anemia Current Visit: Yes Status: Chronic Assessment and plan: Appears to be iron deficient, consistent with a GI malignancy. We will provide IV iron. Qualifiers: Anemia type: unspecified type Qualified Code(s): D64.9 - Anemia, unspecified Internal Medicine - CN: HPI - Data of Consult Patient: new to practice Requesting Physician: Veronique De La O MD - Consult Narrative Reason for consult: Drop in HGB, concern for GI bleeding History of present illness: Mr. Duarte is a 67 year old male lives in a senior living, and hospital within the last day or 2 for abdominal pain. CAT scan disclosed a large pancreatic mass, with what appears to be hepatic metastasis. Hemoglobin on admission was about 9.0 with microcytic hypochromic indices, although since then has dropped to 6.0. The staff is had no blood per rectum as been no emesis. He is currently in bed, disinterested, helps minimally with exam, for the most part nonverbal. Appears moderately pale. Does carry a history of advanced MR MARY, may be advanced dementia as well. Past Med Surg Social Fam HX - Past Medical History Medical history: GERD, other Additional medical history: SEIZURES, PVD, HYPERTENSION, HYPERLIPIDEMIA Psychiatric history: anxiety, other - Past Surgical History Surgical History: other (EGD/colonoscopy 2017) Additional surgical history: Cleft palette and lip repair. Basal Cell Carcinoma removed 2002. END removal gallstones 2014 - Social History Smoking Status: Never smoker Smokeless Tobacco Status: No Alcohol use: none Drug use: none ROS unobtainable: due to mental status Internal Medicine - CN: Meds Acetaminophen [Tylenol] 650 mg PO Q4HR PRN 12/04/16 [History] Atorvastatin [Lipitor] 40 mg PO HS 12/04/16 [History] Calcium Carbonate [Tums] 500 - 1,000 mg PO Q4HR PRN 12/04/16 [History] Docusate Sodium [Stool Softener] 100 mg PO BID 12/04/16 [History] Ferrous Sulfate [Iron] 325 mg PO TID 12/04/16 [History] Folic Acid 1 mg PO DAILY 12/04/16 [History] Levothyroxine Sodium [Levoxyl] 50 mcg PO DAILY 12/04/16 [History] Loperamide [Imodium] 2 mg PO Q4HR PRN 12/04/16 [History] Loratadine [Allergy Relief] 10 mg PO DAILY 12/04/16 [History] Lurasidone [Latuda] 40 mg PO DAILY 12/04/16 [History] Multivit,Th Iron,Other Min [Thera-M] 1 tab PO DAILY 12/04/16 [History] Omeprazole [PriLOSEC] 20 mg PO DAILY 12/04/16 [History] Potassium Chloride [K-Tab ER] 20 meq PO DAILY 12/04/16 [History] Prochlorperazine Maleate [Compazine] 5 mg PO Q6H PRN 12/04/16 [History] Rivaroxaban [Xarelto] 20 mg PO DAILY 12/04/16 [History] Sennosides/Docusate Sodium [Senna-S Tablet] 1 tab PO QAM 12/04/16 [History] Sertraline [Zoloft] 150 mg PO DAILY 12/04/16 [History] Sucralfate [Carafate] 1 gm PO BID 12/04/16 [History] HYDROcodone/Acet 7.5/325 mg [[place] 7.5-325 mg] 1 tab PO Q4-6H PRN #30 tablet 02/03/17 [Rx] MOM Conc [MILK OF MAGNESIA conc] 30 ml PO DAILY PRN 03/06/17 [History] Mupirocin [Bactroban Oint] 1 appl TP BID 03/06/17 [History] diazePAM [Valium] 10 - 30 mg PO DAILY PRN 03/06/17 [History] Promethazine [Phenergan] 25 mg PO Q6HR PRN #8 tablet 05/11/17 [Rx] Acetaminophen [Pain Reliever] 1,000 mg PO TID PRN #100 tablet 07/23/18 [Rx] Ciprofloxacin [Cipro] 500 mg PO BID 7 Days #14 tablet 07/23/18 [Rx] Allergy/AdvReac Type Severity Reaction Status Date / Time No Known Allergies Allergy Verified 07/23/18 11:48 Internal Med - CN: Exam - Constitutional Vitals: Temp Pulse Resp BP Pulse Ox 97.5 F L 85 17 109/69 90 07/24/18 11:04 07/24/18 11:04 07/24/18 11:04 07/24/18 11:04 07/24/18 11:04 General appearance IM: Present: disheveled. Absent: no acute distress, obese - Head Head exam: Present: atraumatic - Eye Eye exam: Present: sclera anicteric. Absent: conjuntiva pink - Neck Neck exam general surgery: Present: supple, trachea midline. Absent: full ROM - Respiratory Respiratory exam: Present: decreased breath sounds, CTAB Additional comments: Somewhat of a poor effort. - Cardiovascular Cardiovascular exam IM: Present: RRR, +S1, +S2. Absent: JVD - GI/Abdominal Additional comments: Protuberant, somewhat firm. No discrete masses noted. Active bowel sounds. Rectal examination with soft brown stool felt, no blood no melena. - Rectal Rectal exam: Absent: black stool, bloody stool, mass - Extremities Exam Additional comments: Contractures of the upper extremities, right much greater than left. Internal Medicine - CN: Reslt - Labs CBC & Chem 7: 07/24/18 10:40 07/24/18 10:40 Labs: Short CBC 07/23/18 07/24/18 Range/Units 15:44 10:40 WBC 10.4 7.2 (4.3-11.1) K/mcL Hgb 7.1 L 6.0 L* (12.9-16.9) g/dL Hct 26.5 L 21.9 L (37.5-50.1) % Plt Count 409 H 372 (140-400) K/mcL Neutrophils # 7.9 5.6 (1.6-8.9) K/mcL BMP 07/23/18 07/24/18 15:44 10:40 Sodium 139 140 Potassium 4.5 4.5 Chloride 107 109 H Carbon Dioxide 23 23 BUN 21 17 Creatinine 0.70 0.61 L Glucose 146 H 94 Calcium 8.6 8.1 L Cardiac Enzymes 07/23/18 Range/Units 15:44 Troponin I < 0.03 (< 0.04) ng/mL Liver Function 07/23/18 Range/Units 15:44 Total Bilirubin 0.5 (0.3-1.0) mg/dL Direct Bilirubin 0.2 (0.0-0.2) mg/dL AST 32 (13-39) Units/L ALT 12 (7-52) Units/L Alkaline Phosphatase 131 H (34-104) Units/L Albumin 2.8 L (3.5-5.7) g/dL - ABG Interpretation ABG results: PT/INR, D-dimer PT 14.5 Seconds (9.4-12.1) H 07/24/18 10:40 - Impressions Impressions Chest CT 07/23/18 00:00 IMPRESSION: Moderate to large right pleural effusion. Etiology is not entirely clear, but given the findings elsewhere, may represent a malignant effusion. Left upper lobe nodule measuring 7 mm. Please refer to the concurrent CT abdomen pelvis report. D/ / Elias Jaime MD / Elias Jaime MD Interpreting Provider: Elias Jaime MD Chest X-Ray 07/23/18 15:29 IMPRESSION: Limited rotated portable chest x-ray. Right greater than left bilateral airspace disease suspected to be due to edema and atelectasis, less likely pneumonia. Moderate-sized right pleural effusion. D/ / Aftab Davalos MD / Aftab Davalos MD Interpreting Provider: Aftab Davalos MD Abdomen/Pelvis CT 07/23/18 17:19 IMPRESSION: Large mass seen within the midportion of the abdomen likely arising from the pancreas measuring 19 cm x 14 cm in size which is compressing the stomach and duodenum. There is no bowel obstruction. Significant distention of the gallbladder likely secondary to pancreatic mass. Metastatic lesion seen to the right lobe of the liver measuring 7.4 cm x 6.1 cm in size. D/ / 07/23/2018 18:25:37 Be Chambers MD / jean-pierre Interpreting Provider: Be Chambers MD Consult Discharge Plan - Plan Referrals: Sakina Castellano MD [Primary Care Provider] -
[2018-07-24 15:33] LABS: Bilirubin,Urine Negative (Negative); Blood,Urine Negative (Negative); Clarity,Urine Clear (Clear); Color,Urine Yellow (Yellow); Glucose,Urine (UA) Normal (Normal); Ketones,Urine Negative (Negative); Leukocyte Esterase,Urine Trace (Negative); Nitrite,Urine Negative (Negative); Protein,Urine Negative (Neg-Trace); Specific Gravity,Urine 1.014 (1.010-1.025); Urobilinogen,Urine Normal (Normal)
[2018-07-24 15:34] LABS: Bacteria,Urine None Seen per hpf (None-Few); Hyaline Casts,Urine None Seen per lpf (None-Few); Squamous Epithelial Cell,Urine Moderate per lpf (None-Few)
[2018-07-24] MEDS ORDERED: Pantoprazole 40 MG VIAL IVP SCH (18:00)
[2018-07-24 22:29] LABS: Hematocrit 26.4 % (37.5-50.1)
[2018-07-24 22:30] LABS: Hemoglobin 7.8 g/dL (12.9-16.9)
[2018-07-25] MEDS: 0.9 % Sodium Chloride 1,000 ML IVC SCH (00:03)
[2018-07-25 03:14] LABS: Basophils % 0.6 %; Eosinophils # 0.3 K/mcL (0.0-0.6); Eosinophils % 4.3 %; Hematocrit 28.2 % (37.5-50.1); Hemoglobin 8.3 g/dL (12.9-16.9); Immature Granulocytes % 0.8 % (0-4); Lymphocytes # 1.1 K/mcL (0.6-4.6); Lymphocytes % 17.9 %; Mean Corpuscular HGB Conc 29.4 g/dL (31.6-35.5); Mean Corpuscular Hemoglobin 23.8 pg (28.0-33.3); Mean Corpuscular Volume 80.8 fL (83.0-100.0); Mean Platelet Volume 9.3 fL (9.4-12.4); Monocytes # 0.4 K/mcL (0.0-1.3); Monocytes % 6.5 %; Neutrophils # 4.4 K/mcL (1.6-8.9); Nucleated Red Blood Cells 0.3 /100 WBC (0); Platelet Count 334 K/mcL (140-400); Red Blood Count 3.49 M/mcL (4.19-5.50); Segmented Neutrophils % 69.9 %
[2018-07-25 03:25] LABS: BUN/Creatinine Ratio 22 (6-26); Blood Urea Nitrogen 13 mg/dL (8-23); Calcium 8.1 mg/dL (8.6-10.3); Carbon Dioxide 23 mEq/L (23-29); Chloride 106 mEq/L (98-107); Glucose 89 mg/dL (70-105); Magnesium 1.8 mg/dL (1.6-2.6); Osmolality,Calculated 280 (280-300); Phosphorous 3.4 mg/dL (2.7-4.5); Potassium 3.8 mEq/L (3.5-5.1); Sodium 135 mEq/L (136-145); eGFR For Non-African Americans > 60 (> 60)
--- NOTE | 2018-07-25 07:26 | Internal Med Progress Note ---
Hospitalist Progress Note - Encounter Date of Encounter: 07/25/18 Time of Encounter: 07:30 - Subjective Interval History: No acute events overnight - Exam Vitals: Temp Pulse Resp BP Pulse Ox 97.5 F L 80 18 118/70 90 07/25/18 07:07 07/25/18 07:07 07/25/18 07:07 07/25/18 07:07 07/25/18 07:07 Exam: General appearance: AAOx 2 Head exam: Present: normocephalic Respiratory exam: Present: CTAB. Absent: accessory muscle use, rales, rhonchi, wheezes Cardiovascular exam: Present: RRR, +S1, +S2. Absent: diastolic murmur, gallop, rubs, systolic murmur GI/Abdominal exam: Present: Epigastric tenderness to palpation on exam Extremities exam: Has contractures Neurological exam: Present: alert, - Assessment and Plan (1) Pancreatic mass Current Visit: Yes Status: Acute Assessment and Plan: CT abd/pelvis shows large pancreatic mass compressing stomach and duodenum Check tumor markers: CA19-9, AFP, CEA Oncology consulted.Patient has poor prognosis and palliative care has been consulted Palliative care on board and attempting to contact [facility] [place] to discuss patient situation and prognosis May benefit from biopsy and thoracentesis fro diagnostic purposes but patient has very prognosis and the best course to pursue may be hospice (2) Liver metastasis Current Visit: Yes Status: Acute Assessment and Plan: CT abd/pelvis shows large pancreatic mass with liver mets See plan above. Patient has poor prognosis (3) Malignant pleural effusion Current Visit: Yes Status: Acute Assessment and Plan: CT chest shows moderate-large right pleural effusion Suspect malignant considering large pancreatic mass found on imaging Seen by pulmonary for thoracentesis which may not be feasible at bedside due to patient's inability to follow commands May need biopsy and thoracentesis under anesthesia if aggressive work up is pursued (4) Anemia Current Visit: Yes Status: Acute Assessment and Plan: Anemia possibly secondary to acute GI bleed vs due to malignancy Hemglobin dropped to 6.0 from 7.1 yesterday. transfuse [address] Mcgarry consulted for endoscopy but EGD not feasible due to large pancreatic mass Hemoglobin responded appropriately to transfusion (5) History of developmental delay Current Visit: Yes Status: Chronic Assessment and Plan: History of developmental delay (6) History of DVT (deep vein thrombosis) Current Visit: Yes Status: Chronic Assessment and Plan: History of DVT On xarelto Hold xarelto due to possible GI bleed DVT Prophylaxis: SCD - Time Spent with Patient Total time spent is greater than 50% in coordination of care (as documented) at patient's floor/unit and/or counseling patient: Internal Medicine: Result - Labs CBC & Chem 7: 07/25/18 10:55 07/25/18 02:52 Labs: Short CBC 07/24/18 07/24/18 07/25/18 Range/Units 10:40 22:00 02:52 WBC 7.2 6.3 (4.3-11.1) K/mcL Hgb 6.0 L* 7.8 L D 8.3 L (12.9-16.9) g/dL Hct 21.9 L 26.4 L 28.2 L (37.5-50.1) % Plt Count 372 334 (140-400) K/mcL Neutrophils # 5.6 4.4 (1.6-8.9) K/mcL BMP 07/24/18 07/25/18 10:40 02:52 Sodium 140 135 L Potassium 4.5 3.8 Chloride 109 H 106 Carbon Dioxide 23 23 BUN 17 13 Creatinine 0.61 L 0.60 L Glucose 94 89 Calcium 8.1 L 8.1 L Urine 07/24/18 Range/Units 15:26 Urine Color Yellow (Yellow) Urine Clarity Clear (Clear) Urine pH 6.0 (5.0-8.0) pH Units Ur Specific [place] 1.014 (1.010-1.025) Urine Protein Negative (Neg-Trace) mg/dL Urine Glucose (UA) Normal (Normal) mg/dL - ABG Interpretation ABG results: PT/INR, D-dimer PT 14.5 Seconds (9.4-12.1) H 07/24/18 10:40 - Impressions Impressions Abdomen/Pelvis CT 07/23/18 17:19 IMPRESSION: Large mass seen within the midportion of the abdomen likely arising from the pancreas measuring 19 cm x 14 cm in size which is compressing the stomach and duodenum. There is no bowel obstruction. Significant distention of the gallbladder likely secondary to pancreatic mass. Metastatic lesion seen to the right lobe of the liver measuring 7.4 cm x 6.1 cm in size. D/ / 07/23/2018 18:25:37 Be Chambers MD / jean-pierre Interpreting Provider: Be Chambers MD Consult Discharge Plan - Plan Referrals: Sakina Castellano MD [Primary Care Provider] - (4) Anemia Qualifiers: Anemia type: unspecified type Qualified Code(s): D64.9 - Anemia, unspecified
[2018-07-25 08:42] LABS: Hematocrit 26.4 % (37.5-50.1)
--- NOTE | 2018-07-25 10:16 | Event Note ---
Date of Encounter: 07/25/18 Time of Encounter: 10:15 Patient awake and alert, asking me for coffee. Wants IV out of arm. Attempted to reorient to situation. Denies any pain or discomfort. Abd appears more distended than yesterday. D/W Dr. Aranda - will reach out to [facility] main office in early am to discuss patient situation, and see if they can provide car sales representative guardian for patient, since his previous one retired a few months back.
[2018-07-25 11:05] LABS: Hematocrit 29.2 % (37.5-50.1); Hemoglobin 8.5 g/dL (12.9-16.9)
[2018-07-25 15:27] LABS: Hematocrit 30.2 % (37.5-50.1); Hemoglobin 9.1 g/dL (12.9-16.9)
--- NOTE | 2018-07-25 19:47 | Oncology Inp Consult Note ---
Date of Encounter: 07/25/18 Time of Encounter: 19:45 Assessment and Plan (1) Anemia Status: Acute Assessment and plan: Microcytic hypochromic anemia hemoglobin 9.1 MCV around 80. On July 2018 ferritin elevated at 1500 with low iron saturation. Ferritin is an acute phase reactant We will do anemia workup including serum protein electrophoresis and light chains. His LDH is elevated which could be from other reasons. We will do hemolysis workup as well Qualifiers: Anemia type: unspecified type Qualified Code(s): D64.9 - Anemia, unspecified (2) Pancreatic mass Status: Acute Assessment and plan: Large pancreatic mass and liver lesion. Concerning for metastatic pancreatic cancer. CEA normal at 1 on 07/24/2018. CA 19-9 pending LDH elevated around 460. To establish tissue diagnosis would need needle biopsy may be of the liver. If pancreatic cancer is established then be poor prognosis. If it is something different-like lymphoma may offer some treatment - Data of Consult Patient: new to practice Requesting Physician: Veronique De La O MD Primary Care Provider: Sakina Castellano - Consult Narrative Reason for consult: Possible metastatic pancreatic cancer History of present illness: Patient has history of MRDD. He was seen in the emergency room because of left flank/abdominal pain. CT abdomen and pelvis 07/23/2018 showed Large mass seen within the midportion of the abdomen likely arising from the pancreas measuring 19 cm x 14 cm in size which is compressing the stomach and duodenum. There is no bowel obstruction. Significant distention of the gallbladder likely secondary to pancreatic mass. Metastatic lesion seen to the right lobe of the liver measuring 7.4 cm x 6.[address] Francisco has seen him in consultation and I reviewed his notes Palliative care involved as well. CT chest 07/23/2018 showed large right pleural effusion. Pulmonology consult noted. He is asymptomatic and no acute intervention necessary Past Med Surg Social Fam HX - Past Medical History Medical history: GERD, other Additional medical history: SEIZURES, PVD, HYPERTENSION, HYPERLIPIDEMIA Psychiatric history: anxiety, other - Past Surgical History Surgical History: other (EGD/colonoscopy 2016) Additional surgical history: Cleft palette and lip repair. Basal Cell Carcinoma removed 2002. END removal gallstones 2014 - Social History Smoking Status: Never smoker Smokeless Tobacco Status: No Alcohol use: none Drug use: none Medications and Allergies RX: Atorvastatin [Lipitor] 40 mg PO HS 12/04/16 [History] RX: Docusate Sodium [Stool Softener] 100 mg PO BID 12/04/16 [History] RX: Folic Acid 1 mg PO DAILY 12/04/16 [History] RX: Loratadine [Allergy Relief] 10 mg PO DAILY 12/04/16 [History] RX: Multivit,Th Iron,Other Min [Thera-M] 1 tab PO QAM 12/04/16 [History] RX: Omeprazole [PriLOSEC] 20 mg PO MOWEFR 12/04/16 [History] RX: Potassium Chloride [K-Tab ER] 20 meq PO DAILY 12/04/16 [History] RX: Rivaroxaban [Xarelto] 20 mg PO DAILY 12/04/16 [History] RX: Sennosides/Docusate Sodium [Senna-S Tablet] 1 tab PO QAM 12/04/16 [History] RX: Sertraline [Zoloft] 50 mg PO DAILY 12/04/16 [History] RX: Sucralfate [Carafate] 1 gm PO BID 12/04/16 [History] Ciprofloxacin [Cipro] 500 mg PO BID 7 Days #14 tablet 07/23/18 [Rx] Acetaminophen [Tylenol] 1,000 mg PO TID PRN 07/26/18 [History] Ascorbate Calcium [Vitamin C] 500 mg PO DAILY 07/26/18 [History] Fluorouracil [Efudex] 1 appl TP DAILY 07/26/18 [History] Iron Polysaccharide Complex [Pro Fe] 180 mg PO DAILY 07/26/18 [History] Levothyroxine [Synthroid] 75 mcg PO QAM 07/26/18 [History] Lurasidone HCl [Latuda] 80 mg PO HS 07/26/18 [History] Mirtazapine [Remeron] 15 mg PO HS 07/26/18 [History] Polyethylene Glycol 3350 [MiraLAX Powder Bulk 17.9 Oz] 17 gm PO BID 07/26/18 [History] Sertraline [Zoloft] 100 mg PO DAILY 07/26/18 [History] Allergy/AdvReac Type Severity Reaction Status Date / Time No Known Allergies Allergy Verified 07/26/18 08:33 Review of systems: Heart to obtain because underlying MRDD. Looks like he has mild abdominal discomfort. But not in acute distress. He does not need supplemental oxygen. Breathing is stable. He denied any chest pain. No fever chills. No skin lesion or rashes Oncology - Exam - Constitutional Exam: GENERAL: MR Don Mental Status: Affect appropriate for circumstances HEENT: Sclerae anicteric. No mucositis or thrush. No other oral or pharyngeal lesions or erythema. Skin: No rashes or petechiae. No evidence of skin malignancy Lymph nodes: No cervical, supraclavicular, axillary, or inguinal adenopathy. Lungs: Air entry normal with normal breath sounds. No rhonchi or wheezing Cardiovascular: Regular rate and rhythm. No skipped beats Abdomen: Distention mainly in the upper quadrant with mild diffuse tenderness. Extremities: No edema. No calf swelling or tenderness. No joint deformity. Neurologic: Alert, incomplete neurological exam he has some deformity in the right upper extremity with pronation of the hand Consult Discharge Plan - Plan Referrals: Sakina Castellano MD [Primary Care Provider] - Inpatient Charges Provider: Dr. Jose D Larsen Consult - Inpatient: [id number]
[2018-07-26] MEDS: 0.9 % Sodium Chloride 1,000 ML IVC SCH ×3 (02:38→20:11)
[2018-07-26 06:28] LABS: Basophils % 0.5 %; Eosinophils # 0.3 K/mcL (0.0-0.6); Eosinophils % 4.7 %; Hemoglobin 8.4 g/dL (12.9-16.9); Immature Granulocytes % 0.5 % (0-4); Lymphocytes # 0.9 K/mcL (0.6-4.6); Lymphocytes % 13.8 %; Mean Corpuscular Hemoglobin 23.3 pg (28.0-33.3); Mean Corpuscular Volume 77.8 fL (83.0-100.0); Mean Platelet Volume 9.4 fL (9.4-12.4); Monocytes # 0.4 K/mcL (0.0-1.3); Monocytes % 5.5 %; Neutrophils # 4.8 K/mcL (1.6-8.9); Platelet Count 296 K/mcL (140-400); Red Cell Distribution Width 20.4 % (11.5-14.5)
[2018-07-26 06:52] LABS: BUN/Creatinine Ratio 19 (6-26); Blood Urea Nitrogen 11 mg/dL (8-23); Calcium 7.9 mg/dL (8.6-10.3); Carbon Dioxide 24 mEq/L (23-29); Chloride 106 mEq/L (98-107); Glucose 93 mg/dL (70-105); Magnesium 1.8 mg/dL (1.6-2.6); Osmolality,Calculated 281 (280-300); Phosphorous 3.4 mg/dL (2.7-4.5); Potassium 3.4 mEq/L (3.5-5.1); Sodium 136 mEq/L (136-145); eGFR For Non-African Americans > 60 (> 60)
[2018-07-26 06:56] LABS: Prostate Specific Antigen 0.03 ng/mL (Less than 4.00)
--- NOTE | 2018-07-26 08:15 | Internal Med Progress Note ---
Hospitalist Progress Note - Encounter Date of Encounter: 07/26/18 Time of Encounter: 08:00 - Subjective Interval History: Had thoracentesis this am - Exam Vitals: Temp Pulse Resp BP Pulse Ox 97.9 F 75 16 125/72 92 07/26/18 07:28 07/26/18 07:28 07/26/18 07:28 07/26/18 07:28 07/26/18 07:28 Exam: General appearance: AAOx 2 Head exam: Present: normocephalic Respiratory exam: Present: CTAB. Absent: accessory muscle use, rales, rhonchi, wheezes Cardiovascular exam: Present: RRR, +S1, +S2. Absent: diastolic murmur, gallop, rubs, systolic murmur GI/Abdominal exam: Present: Epigastric tenderness to palpation on exam Extremities exam: Has contractures Neurological exam: Present: alert, - Assessment and Plan (1) Pancreatic mass Current Visit: Yes Status: Acute Assessment and Plan: CT abd/pelvis shows large pancreatic mass compressing stomach and duodenum Check tumor markers: CA19-9, AFP, CEA Oncology consulted.Patient has poor prognosis and palliative care has been consulted Palliative care on board and attempting to contact [facility] to discuss patient situation and prognosis May benefit from biopsy and thoracentesis fro diagnostic purposes but patient has very prognosis and the best course to pursue may be hospice 07/26 Thoracentesis done this am and awaiting cytology. Patient stable otherwise. Per IR due to his developmental delay and constant agitation, would be difficult to obtain a biopsy, so would prefer to wait for cytology results before proceeding with biopsy May discharge back to senior living and have him follow up outpatient pending palliative care recs (2) Liver metastasis Current Visit: Yes Status: Acute Assessment and Plan: CT abd/pelvis shows large pancreatic mass with liver mets See plan above. Patient has poor prognosis (3) Malignant pleural effusion Current Visit: Yes Status: Acute Assessment and Plan: CT chest shows moderate-large right pleural effusion Suspect malignant considering large pancreatic mass found on imaging Seen by pulmonary for thoracentesis which may not be feasible at bedside due to patient's inability to follow commands May need biopsy and thoracentesis under anesthesia if aggressive work up is pursued Thoracentesis completed by IR today (4) Anemia Current Visit: Yes Status: Acute Assessment and Plan: Anemia possibly secondary to acute GI bleed vs due to malignancy Hemglobin dropped to 6.0 from 7.1 yesterday. transfuse [address] Mcgarry consulted for endoscopy but EGD not feasible due to large pancreatic mass Hemoglobin responded appropriately to transfusion (5) History of developmental delay Current Visit: Yes Status: Chronic Assessment and Plan: History of developmental delay (6) History of DVT (deep vein thrombosis) Current Visit: Yes Status: Chronic Assessment and Plan: History of DVT On xarelto Hold xarelto due to possible GI bleed DVT Prophylaxis: SCD - Time Spent with Patient Total time spent is greater than 50% in coordination of care (as documented) at patient's floor/unit and/or counseling patient: Internal Medicine: Result - Labs CBC & Chem 7: 07/26/18 06:09 07/26/18 06:09 Labs: Short CBC 07/25/18 07/25/18 07/25/18 Range/Units 08:11 10:55 15:18 WBC (4.3-11.1) K/mcL Hgb 8.0 L 8.5 L 9.1 L (12.9-16.9) g/dL Hct 26.4 L 29.2 L 30.2 L (37.5-50.1) % Plt Count (140-400) K/mcL Neutrophils # (1.6-8.9) K/mcL 07/26/18 Range/Units 06:09 WBC 6.4 (4.3-11.1) K/mcL Hgb 8.4 L (12.9-16.9) g/dL Hct 28.0 L (37.5-50.1) % Plt Count 296 (140-400) K/mcL Neutrophils # 4.8 (1.6-8.9) K/mcL BMP 07/26/18 06:09 Sodium 136 Potassium 3.4 L Chloride 106 Carbon Dioxide 24 BUN 11 Creatinine 0.57 L Glucose 93 Calcium 7.9 L - ABG Interpretation ABG results: PT/INR, D-dimer PT 14.5 Seconds (9.4-12.1) H 07/24/18 10:40 Consult Discharge Plan - Plan Referrals: Sakina Castellano MD [Primary Care Provider] - ____ (4) Anemia Qualifiers: Anemia type: unspecified type Qualified Code(s): D64.9 - Anemia, unspecified
--- NOTE | 2018-07-26 08:49 | Electrocardiograph Report ---
[address] [address] Test Date: 2018-07-23 Pat Name: Ankush Duarte Department: EXAM23 Room: 3A12 Gender: M Career Services Manager: : 1950 Requested By: Rikki Molina Order Number: [id number] Reading MD: Piero Conner Measurements Intervals [place] Rate: 96 P: 40 NC: 134 QRS: 53 QRSD: 78 T: -1 QT: 369 QTc: 467 Interpretive Statements Sinus rhythm Low voltage, precordial leads Nonspecific ST-T wave changes Electronically Signed On 07-26-2018 8:47:41 EDT by Piero Conner
--- NOTE | 2018-07-26 11:28 | Palliative Progress Note ---
Date of Encounter: 07/26/18 Time of Encounter: 10:00 - Assessment and plan (1) Abdominal pain Current Visit: No Status: Acute Assessment and plan: Has Oxycodone available if needed. He denies abd pain this am. (2) Anxiety Current Visit: Yes Status: Acute Assessment and plan: Has IV Lorazepam available if needed. (3) Palliative care encounter Current Visit: Yes Status: Acute Assessment and plan: Spoke with Deysi Rivera from [employer] [facility] [employer] [facility] office this am. I faxed patient's chart to the office per request. I did receive paperwork from [employer] regarding request for DNR status. These forms were compl eted and signed by myself and Dr. Aranda to the central office in [place]. There medical team will review and return letter with their recommendation. I did meet patient's new guardian that was assigned (Gunjan Cardenas [phone]), as she did come do hospital to visit patient. Monica Alexandre [employer]W CLEANER oncology, and Dr. Aranda also attended. Will continue to follow throughout the day and commun icate any information received from [employer]. Patient likely for liver biopsy today. (4) Pancreatic mass Current Visit: Yes Status: Acute (5) Liver metastasis Current Visit: Yes Status: Acute Assessment and plan: Possible liver biopsy today or tomorrow (6) Malignant pleural effusion Current Visit: Yes Status: Acute Assessment and plan: IR drained 1L during right thoracentesis earlier this am. (7) Prostate cancer Current Visit: Yes Status: Acute - Time Spent With Patient Total time spent is greater than 50% in coordination of care (as documented) at patient's floor/unit and/or counseling patient: Greater than 35 minutes (60 min spent thus far today in coordination of care with patient, [employer] parts representative, and central office in [place].) - Subjective Interval history: Patient awake and alert, agitated, trying to pull bleeding IV from arm yelling "get it out!". IR in recently and thoracentesis was completed with reported 1L dark fluid removed. Hgb stable at 8.4 this am. Urine culture was negative. Vitals stable. He is calm when left alone, however, becomes very agitated with any medical intervention. Asking for chocolate milk. - Constitutional Vitals: Abnormal lab results RBC 3.60 M/mcL (4.19-5.50) L 07/26/18 06:09 Hgb 8.4 g/dL (12.9-16.9) L 07/26/18 06:09 Hct 28.0 % (37.5-50.1) L 07/26/18 06:09 MCV 77.8 fL (83.0-100.0) L 07/26/18 06:09 MCH 23.3 pg (28.0-33.3) L 07/26/18 06:09 MCHC 30.0 g/dL (31.6-35.5) L 07/26/18 06:09 RDW 20.4 % (11.5-14.5) H 07/26/18 06:09 Nucleated RBCs/100 WBC 0.3 /100 WBC (0) H 07/25/18 02:52 Hypochromasia Present (Not Present) A 07/24/18 10:40 Poikilocytosis 1+ (Not Present) A 07/24/18 10:40 Anisocytosis 1+ (Not Present) A 07/24/18 10:40 Retic Hgb Equivalent 22.7 pg (28.61-36.33) L 07/24/18 10:40 PT 14.5 Seconds (9.4-12.1) H 07/24/18 10:40 Potassium 3.4 mEq/L (3.5-5.1) L 07/26/18 06:09 Creatinine 0.57 mg/dL (0.70-1.30) L 07/26/18 06:09 POC Glucose 111 mg/dL (70-99) H 07/24/18 15:14 Calcium 7.9 mg/dL (8.6-10.3) L 07/26/18 06:09 Iron 21 mcg/dL (65-175) L 07/24/18 10:40 Ferritin 1467 ng/mL (20-250) H 07/24/18 10:40 Alkaline Phosphatase 131 Units/L (34-104) H 07/23/18 15:44 Lactate Dehydrogenase 464 Units/L (140-271) H 07/24/18 10:40 Albumin 2.8 g/dL (3.5-5.7) L 07/23/18 15:44 Globulin 4.7 g/dL (2.4-3.5) H 07/23/18 15:44 Albumin/Globulin Ratio 0.6 (1.1-2.2) L 07/23/18 15:44 Ur Leukocyte Esterase Trace (Negative) H 07/24/18 15:26 Urine Microscopic RBC 5-15 per hpf (0-3) H 07/24/18 15:26 Urine Microscopic WBC 3-5 per hpf (0-3) H 07/24/18 15:26 Ur Squamous Epith Cells Moderate per lpf (None-Few) H 07/24/18 15:26 Ur Culture Indicated? YES (NO) A 07/24/18 15:26 General appearance: Present: mild distress - Respiratory Respiratory exam: Present: decreased breath sounds Additional comments: Shallow inspiratory effort - Cardiovascular Cardiovascular exam: Present: +S1, +S2 - GI/Abdominal GI/Abdominal exam: Present: diminished bowel sounds, distended, firm - Extremities Exam Extremities exam: Present: normal capillary refill Additional comments: Right arm with old contractures - Neurological Exam Neurological exam: Present: alert Additional comments: Oriented to name only this am. Will not follow commands. - Skin Skin exam: Present: dry, pallor, warm Palliative Quality Palliative Quality: Screen for Code Status: NA (will have to f/u with [facility]), Screen for Goals of Care: NA, Screen for Pain: Yes, If Pain Regimen Started, Initiate Bowel Regimen: NA, Screen for Nausea/Vomitting: Yes Code Status: 07/23/18 21:16 Resuscitation Status: Active [RES] Routine Comment: Resuscitation Status: Full Code - Labs CBC & Chem 7: 07/26/18 06:09 07/26/18 06:09 Labs: Laboratory Results - last 24 hr 07/25/18 07/26/18 07/26/18 15:18 06:09 06:09 WBC 6.4 RBC 3.60 L Hgb 9.1 L 8.4 L Hct 30.2 L 28.0 L MCV 77.8 L MCH 23.3 L MCHC 30.0 L RDW 20.4 H Plt Count 296 MPV 9.4 Immature Gran % 0.5 Seg Neutrophils % 75.0 Lymphocytes % 13.8 Monocytes % 5.5 Eosinophils % 4.7 Basophils % 0.5 Neutrophils # 4.8 Lymphocytes # 0.9 Monocytes # 0.4 Eosinophils # 0.3 Basophils # 0.0 Sodium 136 Potassium 3.4 L Chloride 106 Carbon Dioxide 24 BUN 11 Creatinine 0.57 L Est GFR ( Amer) > 60 Est GFR (Non-Af Amer) > 60 BUN/Creatinine Ratio 19 Glucose 93 Calculated Osmolality 281 Calcium 7.9 L Phosphorus 3.4 Magnesium 1.8 Prostate Specific Ag GASTON, Poly Interpret 07/26/18 07/26/18 06:09 06:09 WBC RBC Hgb Hct MCV MCH MCHC RDW Plt Count MPV Immature Gran % Seg Neutrophils % Lymphocytes % Monocytes % Eosinophils % Basophils % Neutrophils # Lymphocytes # Monocytes # Eosinophils # Basophils # Sodium Potassium Chloride Carbon Dioxide BUN Creatinine Est GFR ( Amer) Est GFR (Non-Af Amer) BUN/Creatinine Ratio Glucose Calculated Osmolality Calcium Phosphorus Magnesium Prostate Specific Ag 0.03 GASTON, Poly Interpret NEG - Impressions Impressions Thoracentesis 07/26/18 07:56 IMPRESSION: Successful ultrasound guided thoracentesis. D/ / Gennaro Bah MD / Gennaro Bah MD Interpreting Provider: Gennaro Bah MD Chest X-Ray 07/26/18 09:41 IMPRESSION: Slight decrease in size of patient's right-sided pleural effusion with no evidence for pneumothorax. D/ / 07/26/2018 10:10:27 Be Chambers MD / [email or web address] Interpreting Provider: Be Chambers MD - ABG Interpretation ABG results: PT/INR, D-dimer PT 14.5 Seconds (9.4-12.1) H 07/24/18 10:40 Consult Discharge Plan - Plan Referrals: Sakina Castellano MD [Primary Care Provider] -
[2018-07-26 11:41] LABS: AFP Tumor Marker Non-Pregnant 1 ng/mL (0-9); Cancer Antigen-GI (CA 19-9) 14 U/mL (0-37)
[2018-07-26 11:48] LABS: Total Protein,Pleural Fluid 3.7 g/dL (No Ref Range)
[2018-07-26 11:58] LABS: RBC,Pleural Fluid 0.021 M/mcL
[2018-07-26 12:04] LABS: Appearance of Pleural Fl Cloudy (Clear)
--- NOTE | 2018-07-26 13:42 | Oncology Inp Progress Note ---
<ChavaLucila S - Last Filed: 07/26/18 17:34> Date of Encounter: 07/26/18 (1) Anemia Current Visit: Yes Status: Acute Qualifiers: Anemia type: unspecified type Qualified Code(s): D64.9 - Anemia, unspecified (2) Pancreatic mass Current Visit: Yes Status: Acute Oncology: Obj Data - Labs CBC & Chem 7: 07/26/18 06:09 07/26/18 06:09 Consult Discharge Plan - Plan Referrals: Sakina Castellano MD [Primary Care Provider] - Inpatient Charges Provider: Dr. Jose D Larsen Follow up - Inpatient: [id number] - Attending Attestation I examined this patient and my medical decision-making was reviewed with the Advanced Practice Nurse Ekta Faustin. I agree with the documented findings, disposition and treatment plan as described except to the extent set forth below. 1. Large lesion in the upper abdomen filling most of the left upper quadrant. Also right liver lesion which is accessible for biopsy Currently patient was agitated. Current decision is DNR and comfort care which is reasonable given the amount of tumor burden. Oncology will be available for further questions. <Ekta Faustin M - Last Filed: 07/27/18 08:08> Date of Encounter: 07/27/18 Time of Encounter: 11:15 (1) Pancreatic mass Current Visit: Yes Status: Acute Assessment and plan: Large pancreatic mass, 19cm x 14cm LDH: 460 elevated CEA 1 WNL CA 19-9 14 WNL Plan: Biopsy of liver lesion 07/26/18. Consent for biopsy obtained previously. Patient is developmentally delayed and consent for procedures and treatment must be granted from [employer] [facility] Protective Services Transmission Superintendent: Gunjan Cardenas Addendum: After review by [employer], patient to be transitioned to DNR CC and hospice. No biopsy to be obtained. (2) Liver metastasis Current Visit: Yes Status: Acute Assessment and plan: Plan for biopsy per Interventional Radiology 07/26/18 Patient NPO but requesting chocolate milk. RN notes that she will discuss with IR for timing of biopsy. (3) Pleural effusion Current Visit: Yes Status: Acute Assessment and plan: 07/26/18 Right thoracentesis: 1L pleural fluid removed CXR reduction in size of Right pleural effusion, no pneumothorax noted after procedure. Oncology: Subj Interval history: Patient agitated upon arrival to the room. RN attempting to cover IV site with dressing as patient was trying to bite off his IV line. Protective Services Transmission Superintendent, Gunjan Cardenas, at bedside and notes patient was yelling and agitated when she arrived. Began discussing case with procurement representative, when she notes that Palliative Care was just called to discuss code status and testing. Palliative Care arrived and discussed findings thus far and role of biopsy to discern if treatment possible. Significant findings including pancreatic mass, liver lesion, and pleural effusion discussed. 1L dark pleural fluid removed d uring thoracentesis this morning. Transmission Superintendent notes that biopsy of liver lesion may be done, as consent was obtained on Thursday, and she will work on the paperwork regarding code status. She notes that their medical manager will look through documentation and assist with determination of accepting treatment or hospice, depending on biopsy results. - Constitutional General appearance: disheveled - Respiratory Respiratory exam: Present: CTAB. Absent: respiratory distress - GI/Abdominal GI/Abdominal exam: Present: distended, normal bowel sounds. Absent: tenderness - Neurological Exam Neurological exam: Present: altered, strengths equal and symetr throughout. Absent: facial droop - Psychiatric Psychiatric exam: Present: agitated - Skin Skin exam: Present: pallor Oncology: Obj Data - Labs CBC & Chem 7: 07/27/18 06:04 07/27/18 06:04 Inpatient Charges Provider: Dr. Jose D Larsen
[2018-07-26] MEDS: Acetaminophen 325 MG TABLET PO PRN (15:29)
--- NOTE | 2018-07-26 16:09 | Event Note ---
Date of Encounter: 07/26/18 Time of Encounter: 16:00 Received letter back from [employer] [facility] [employer] [facility] that after reviewing patient chart and information, they recommended and give permission for patient to be transitioned to DNRCC and Hospice services be arranged for his care. Notified Dr. Aranda, Monica Faustin, [employer]CE[employer]IDE-oncology, discussed with pt primary nurse Roberta. I attempted to contact patient's adult protective caseworker at [facility] regarding if they can continue to care for patient with support of hospice. Unable to reach - left voicemail with my contact information.
[2018-07-26] MEDS: Potassium Chloride Elixir 20 MEQ/15 ML UDC PO SCH ×4 (16:36→21:11)
[2018-07-26] MEDS ORDERED: Mirtazapine 15 MG TABLET PO SCH (21:00)
[2018-07-26] MEDS: Sucralfate 1 GM TABLET PO SCH (21:06)
[2018-07-27 06:20] LABS: Basophils % 0.5 %; Eosinophils # 0.3 K/mcL (0.0-0.6); Eosinophils % 4.7 %; Hematocrit 32.7 % (37.5-50.1); Hemoglobin 9.5 g/dL (12.9-16.9); Immature Granulocytes % 0.5 % (0-4); Lymphocytes % 14.5 %; Mean Corpuscular HGB Conc 29.1 g/dL (31.6-35.5); Mean Corpuscular Hemoglobin 23.5 pg (28.0-33.3); Mean Corpuscular Volume 80.9 fL (83.0-100.0); Mean Platelet Volume 9.2 fL (9.4-12.4); Monocytes # 0.4 K/mcL (0.0-1.3); Monocytes % 5.7 %; Neutrophils # 4.9 K/mcL (1.6-8.9); Platelet Count 339 K/mcL (140-400); Red Blood Count 4.04 M/mcL (4.19-5.50); Red Cell Distribution Width 20.5 % (11.5-14.5); Segmented Neutrophils % 74.1 %
[2018-07-27 06:42] LABS: BUN/Creatinine Ratio 20 (6-26); Blood Urea Nitrogen 11 mg/dL (8-23); Calcium 8.3 mg/dL (8.6-10.3); Carbon Dioxide 24 mEq/L (23-29); Chloride 107 mEq/L (98-107); Glucose 96 mg/dL (70-105); Magnesium 1.8 mg/dL (1.6-2.6); Osmolality,Calculated 285 (280-300); Phosphorous 2.8 mg/dL (2.7-4.5); Potassium 3.7 mEq/L (3.5-5.1); Sodium 138 mEq/L (136-145); eGFR For Non-African Americans > 60 (> 60)
--- NOTE | 2018-07-27 07:55 | Discharge Summary ---
Date of Encounter: 07/27/18 Time of Encounter: 07:55 - Discharge Diagnosis (1) Pancreatic mass Priority: Primary Status: Acute Assessment and Plan: 67 year old male with history of developmental delay, prostate cancer on injecti on therapy, and previous DVT. Lives in fdc. Patient cannot provide history due to developmental delay. History is obtained from caregiver in room. Patient presents for left lateral abdominal pain for 2 days. Caregiver thought it was gas and patient was given tums. This morning, he was screaming of pain. Caregiver notes he was clammy. He was taken to urgent care. Patient was given Tylenol and told its possibly a UTI and urine culture was sent. Patient continued to scream and was sent to ER. Caregiver admits he hasnt been eating as much since April. Denies any other symptoms including fever, vomiting, cough, bowel changes, urinary changes. Upon presentation to [place] [facility], patient was afebrile and vitals stable. CT chest showed moderate-large right pleural effusion. CT abd/pelvis showed large pancreatic mass with liver mets. Oncology was consulted and patient was admitted for further workup. He was admitted with abdominal pain of unclear etiology. CT abd/pelvis shows large pancreatic mass compressing stomach and duodenum and pleural effusion. He was also noted to be anemic at 7.1 with hemoglobin dropping to 6.0 the next day. He was assessed with malignancy likely secondary to pancreatic cancer with liver metastasis. He had a thoracentesis done for teherapeutic and diagnostic purposes on 07/26 and cytology was sent. Per IR due to his developmental delay and constant agitation, would be difficult to obtain a biopsy, so would prefer to wait for cytology results before proceeding with biopsy. He was transfused 2 units PRBC for anemia which is possibly secondary to malignancy vs GI bleed. He was unable to get an endoscopy due to his mental state and poor prognosis Palliative care was involved and in his care and on discussing with his state appointed guardian, patient was made hospice. No further aggressive intervention indicated. 35 minutes was spent discharging this patient (2) Liver metastasis Priority: Primary Status: Acute Assessment and Plan: CT abd/pelvis shows large pancreatic mass with liver mets See plan above. Patient has poor prognosis (3) Malignant pleural effusion Priority: Primary Status: Acute Assessment and Plan: CT chest shows moderate-large right pleural effusion Suspect malignant considering large pancreatic mass found on imaging Seen by pulmonary for thoracentesis which may not be feasible at bedside due to patient's inability to follow commands May need biopsy and thoracentesis under anesthesia if aggressive work up is pursued Thoracentesis completed by IR today (4) Anemia Priority: Primary Status: Acute Qualifiers: Anemia type: unspecified type Qualified Code(s): D64.9 - Anemia, unspecified (5) History of developmental delay Priority: Primary Status: Chronic (6) History of DVT (deep vein thrombosis) Priority: Primary Status: Chronic Hospital course: Mr. Duarte is a 67 year old male - Time Spent with Patient Total time spent providing and/or coordinating discharge services: - Discharge Medications Prescriptions: New LORazepam Oral Conc [Ativan Oral Conc] 1 mg PO Q6HR PRN 4 Days #15 mls PRN Reason: anxiety/restlessness MORPHINE SUL Oral CONC [Roxanol Oral Conc] 5 mg PO Q4H PRN 4 Days #15 oral.syg PRN Reason: pain/dyspnea Prochlorperazine Maleate [Compazine] 10 mg PO Q6HR PRN 4 Days #12 tablet PRN Reason: Nausea OxyCODONE Immed Rel [Roxicodone 5 MG] 5 mg PO Q4HR PRN 4 Days #16 tablet PRN Reason: Pain LORazepam [Lorazepam] 1 mg PO Q6H PRN 4 Days #12 tablet PRN Reason: anxiety/restlessness Continue Sennosides/Docusate Sodium [Senna-S Tablet] 1 tab PO QAM Potassium Chloride [K-Tab ER] 20 meq PO DAILY Multivit,Th Iron,Other Min [Thera-M] 1 tab PO QAM Loratadine [Allergy Relief] 10 mg PO DAILY Sertraline [Zoloft] 50 mg PO DAILY Docusate Sodium [Stool Softener] 100 mg PO BID Omeprazole [PriLOSEC] 20 mg PO MOWEFR Folic Acid 1 mg PO DAILY Atorvastatin [Lipitor] 40 mg PO HS Sucralfate [Carafate] 1 gm PO BID Ciprofloxacin [Cipro] 500 mg PO BID 7 Days #14 tablet Ascorbate Calcium [Vitamin C] 500 mg PO DAILY Fluorouracil [Efudex] 1 appl TP DAILY Iron Polysaccharide Complex [Pro Fe] 180 mg PO DAILY Levothyroxine [Synthroid] 75 mcg PO QAM Lurasidone HCl [Latuda] 80 mg PO HS Mirtazapine [Remeron] 15 mg PO HS Polyethylene Glycol 3350 [MiraLAX Powder Bulk 17.9 Oz] 17 gm PO BID Sertraline [Zoloft] 100 mg PO DAILY Acetaminophen [Tylenol] 1,000 mg PO TID PRN PRN Reason: PAIN/FEVER Discontinued Rivaroxaban [Xarelto] 20 mg PO DAILY Home Medications: Atorvastatin [Lipitor] 40 mg PO HS 12/04/16 [History] Docusate Sodium [Stool Softener] 100 mg PO BID 12/04/16 [History] Folic Acid 1 mg PO DAILY 12/04/16 [History] Loratadine [Allergy Relief] 10 mg PO DAILY 12/04/16 [History] Multivit,Th Iron,Other Min [Thera-M] 1 tab PO QAM 12/04/16 [History] Omeprazole [PriLOSEC] 20 mg PO MOWEFR 12/04/16 [History] Potassium Chloride [K-Tab ER] 20 meq PO DAILY 12/04/16 [History] Sennosides/Docusate Sodium [Senna-S Tablet] 1 tab PO QAM 12/04/16 [History] Sertraline [Zoloft] 50 mg PO DAILY 12/04/16 [History] Sucralfate [Carafate] 1 gm PO BID 12/04/16 [History] Ciprofloxacin [Cipro] 500 mg PO BID 7 Days #14 tablet 07/23/18 [Rx] Acetaminophen [Tylenol] 1,000 mg PO TID PRN 07/26/18 [History] Ascorbate Calcium [Vitamin C] 500 mg PO DAILY 07/26/18 [History] Fluorouracil [Efudex] 1 appl TP DAILY 07/26/18 [History] Iron Polysaccharide Complex [Pro Fe] 180 mg PO DAILY 07/26/18 [History] Levothyroxine [Synthroid] 75 mcg PO QAM 07/26/18 [History] Lurasidone HCl [Latuda] 80 mg PO HS 07/26/18 [History] Mirtazapine [Remeron] 15 mg PO HS 07/26/18 [History] Polyethylene Glycol 3350 [MiraLAX Powder Bulk 17.9 Oz] 17 gm PO BID 07/26/18 [History] Sertraline [Zoloft] 100 mg PO DAILY 07/26/18 [History] LORazepam Oral Conc [Ativan Oral Conc] 1 mg PO Q6HR PRN 4 Days #15 mls 07/27/18 [Rx] LORazepam [Lorazepam] 1 mg PO Q6H PRN 4 Days #12 tablet 07/27/18 [Rx] MORPHINE SUL Oral CONC [Roxanol Oral Conc] 5 mg PO Q4H PRN 4 Days #15 oral.syg 07/27/18 [Rx] OxyCODONE Immed Rel [Roxicodone 5 MG] 5 mg PO Q4HR PRN 4 Days #16 tablet 07/27/18 [Rx] Prochlorperazine Maleate [Compazine] 10 mg PO Q6HR PRN 4 Days #12 tablet 07/27/18 [Rx] Allergies/Adverse Reactions: Allergy/AdvReac Type Severity Reaction Status Date / Time No Known Allergies Allergy Verified 07/26/18 08:33 Date of admission: 07/23/18 22:31 Primary care physician: Sakina Castellano Consults: 07/23/18 19:26 Consult to Oncology [CONS] Stat Consulting Provider: Oncology [facility] [place] Reason for Consult: pancreatic cancer Call Completed: Yes 07/23/18 22:23 Consult to Gastroenterology [CONS] Routine Consulting Provider: Gastroenterology [place] Reason for Consult: large pancreatic mass found on CT, with liver mets Call Completed: No Consult to Interventional Radiology [CONS] Routine Consulting Provider: Radiology Interventional [facility] Reason for Consult: diagnostic thoracentesis; large pancreatic mass found on CT, suspect malignant pleural effusion Call Completed: No 07/24/18 10:09 Consult to Palliative Care [CONS] Routine Comment: Consulting Provider: [facility] [place] Reason for Consult: pancreatic mass Call Completed: No 07/24/18 10:11 Consult to Pulmonology [CONS] Routine Consulting Provider: [facility] Reason for Consult: diagnostic and therapeutic thoracentesis Call Completed: No - Constitutional Vitals: Temp Pulse Resp BP Pulse Ox 97.8 F 77 17 130/54 93 07/27/18 03:35 07/27/18 03:35 07/27/18 03:35 07/27/18 03:35 07/27/18 03:35 General appearance: Present: disheveled. Absent: no acute distress, obese Exam: General appearance: AAO x1 Head exam: Present: normocephalic Respiratory exam: Present: CTAB. Absent: accessory muscle use, rales, rhonchi, wheezes Cardiovascular exam: Present: RRR, +S1, +S2. Absent: diastolic murmur, gallop, rubs, systolic murmur GI/Abdominal exam: Present: Epigastric tenderness to palpation on exam Extremities exam: Has contractures Neurological exam: Present: alert, - Patient Status Disposition: Hospice - Home Condition: Serious - Discharge Instructions Follow Up With: Sakina Castellano MD [Primary Care Provider] -
[2018-07-27 08:25] LABS: Folate > 22.3 ng/mL (3.0-16.0); Vitamin B12 555 pg/mL (250-1100)
[2018-07-27] MEDS ORDERED: Loratadine 10 MG TABLET PO SCH (09:00)
[2018-07-27] MEDS ORDERED: Multivit/Ca/Min/Fe/FA 1 TAB TABLET PO SCH (09:00)
[2018-07-27] MEDS ORDERED: (Iron Polysaccharide Complex [Pro Fe] 180 MG) PO SCH (09:00)
[2018-07-27] MEDS ORDERED: Folic Acid 1 MG TABLET PO SCH (09:00)
[2018-07-27] MEDS ORDERED: Iron Polysaccharide Complex 150 MG CAPSULE PO SCH (09:00)
[2018-07-27] MEDS ORDERED: Ascorbic Acid 500 MG TABLET PO SCH (09:00)
--- NOTE | 2018-07-27 09:54 | Palliative Progress Note ---
Date of Encounter: 07/27/18 Time of Encounter: 09:30 - Assessment and plan (1) Abdominal pain Current Visit: No Status: Acute Assessment and plan: Has Oxycodone available PRN. Has not utilized. (2) Anxiety Current Visit: Yes Status: Acute Assessment and plan: Has Lorazepam available PRN. Utilized x1 last 24 hours. (3) Palliative care encounter Current Visit: Yes Status: Acute (4) Advance care planning Current Visit: Yes Status: Acute Assessment and plan: Patient unable to participate in planning r/t Discussed with [facility] guardian, case managers Martina, and care home caregiver regarding plan to transition back to care home with [facility] care. D/W Dr. Aranda and primary nurse Roberta as well. Referral made to [facility] and oxygen ordered for care home. Prescriptions completed for Oxycodone tabs,, Roxanol SL, Lorazepam, and Compazine and faxed to pharmacy. Letter from [facility] regarding transition to [facility] and hospice faxed to [facility] intake as well [facility]. 45 min spent in coordination of care and counseling. (5) Pancreatic mass Current Visit: Yes Status: Acute (6) Liver metastasis Current Visit: Yes Status: Acute (7) Malignant pleural effusion Current Visit: Yes Status: Acute (8) Prostate cancer Current Visit: Yes Status: Acute - Time Spent With Patient Total time spent is greater than 50% in coordination of care (as documented) at patient's floor/unit and/or counseling patient: - Subjective Interval history: Patient awake and alert, resting quietly this am. Denies complaints. Vitals stable. Hgb stable after 2 u PRBC this past weekend. - Constitutional Vitals: Abnormal lab results RBC 4.04 M/mcL (4.19-5.50) L 07/27/18 06:04 Hgb 9.5 g/dL (12.9-16.9) L 07/27/18 06:04 Hct 32.7 % (37.5-50.1) L 07/27/18 06:04 MCV 80.9 fL (83.0-100.0) L 07/27/18 06:04 MCH 23.5 pg (28.0-33.3) L 07/27/18 06:04 MCHC 29.1 g/dL (31.6-35.5) L 07/27/18 06:04 RDW 20.5 % (11.5-14.5) H 07/27/18 06:04 MPV 9.2 fL (9.4-12.4) L 07/27/18 06:04 Nucleated RBCs/100 WBC 0.3 /100 WBC (0) H 07/25/18 02:52 Hypochromasia Present (Not Present) A 07/24/18 10:40 Poikilocytosis 1+ (Not Present) A 07/24/18 10:40 Anisocytosis 1+ (Not Present) A 07/24/18 10:40 Retic Hgb Equivalent 22.7 pg (28.61-36.33) L 07/24/18 10:40 PT 14.5 Seconds (9.4-12.1) H 07/24/18 10:40 Creatinine 0.54 mg/dL (0.70-1.30) L 07/27/18 06:04 POC Glucose 111 mg/dL (70-99) H 07/24/18 15:14 Calcium 8.3 mg/dL (8.6-10.3) L 07/27/18 06:04 Iron 21 mcg/dL (65-175) L 07/24/18 10:40 Ferritin 1467 ng/mL (20-250) H 07/24/18 10:40 Alkaline Phosphatase 131 Units/L (34-104) H 07/23/18 15:44 Lactate Dehydrogenase 464 Units/L (140-271) H 07/24/18 10:40 Albumin 2.8 g/dL (3.5-5.7) L 07/23/18 15:44 Globulin 4.7 g/dL (2.4-3.5) H 07/23/18 15:44 Albumin/Globulin Ratio 0.6 (1.1-2.2) L 07/23/18 15:44 Folate > 22.3 ng/mL (3.0-16.0) H 07/26/18 06:09 Ur Leukocyte Esterase Trace (Negative) H 07/24/18 15:26 Urine Microscopic RBC 5-15 per hpf (0-3) H 07/24/18 15:26 Urine Microscopic WBC 3-5 per hpf (0-3) H 07/24/18 15:26 Ur Squamous Epith Cells Moderate per lpf (None-Few) H 07/24/18 15:26 Ur Culture Indicated? YES (NO) A 07/24/18 15:26 Pleural Appearance Cloudy (Clear) A 07/26/18 09:27 Pleural RBC 0.021 M/mcL (0.000-0.002) H 07/26/18 09:27 General appearance: Present: no acute distress - Respiratory Respiratory exam: Present: decreased breath sounds, CTAB - Cardiovascular Cardiovascular exam: Present: +S1, +S2 - GI/Abdominal GI/Abdominal exam: Present: diminished bowel sounds, distended, firm - Extremities Exam Extremities exam: Present: normal capillary refill Additional comments: Right arm/hand with some contractures - Neurological Exam Neurological exam: Present: alert Additional comments: Oriented to name and place. - Skin Skin exam: Present: dry, pallor, warm Palliative Quality Palliative Quality: Screen for Code Status: NA (will have to f/u with [facility]), Screen for Goals of Care: NA, Screen for Pain: Yes, If Pain Regimen Started, Initiate Bowel Regimen: NA, Screen for Nausea/Vomitting: Yes Code Status: 07/23/18 21:16 Resuscitation Status: Active [RES] Routine Comment: Resuscitation Status: Full Code 07/26/18 15:51 DNR [Resuscitation Status: Active] [RES] Routine Comment: Resuscitation Status: DNR-Comfort Care - Labs CBC & Chem 7: 07/27/18 06:04 07/27/18 06:04 Labs: Laboratory Results - last 24 hr 07/24/18 07/26/18 07/26/18 13:45 06:09 06:09 WBC RBC Hgb Hct MCV MCH MCHC RDW Plt Count MPV Immature Gran % Seg Neutrophils % Lymphocytes % Monocytes % Eosinophils % Basophils % Neutrophils # Lymphocytes # Monocytes # Eosinophils # Basophils # Sodium Potassium Chloride Carbon Dioxide BUN Creatinine Est GFR ( Amer) Est GFR (Non-Af Amer) BUN/Creatinine Ratio Glucose Calculated Osmolality Calcium Phosphorus Magnesium Tumor Marker AFP 1 CA 19-9 Antigen 14 Prostate Specific Ag 0.03 Vitamin B12 555 Folate > 22.3 H Pleural Fluid Volume Pleural Appearance Pleural pH Pleural RBC Pleural Tot Nuc Cell Pleural Neutrophils Pleural Lymphocytes % Pleural Monocytes % Pleural Other Cells % Pleural Total Protein Pleural LDH Pleural Glucose GASTON, Poly Interpret NEG 07/26/18 07/26/18 07/27/18 09:27 09:27 06:04 WBC 6.6 RBC 4.04 L Hgb 9.5 L Hct 32.7 L MCV 80.9 L MCH 23.5 L MCHC 29.1 L RDW 20.5 H Plt Count 339 MPV 9.2 L Immature Gran % 0.5 Seg Neutrophils % 74.1 Lymphocytes % 14.5 Monocytes % 5.7 Eosinophils % 4.7 Basophils % 0.5 Neutrophils # 4.9 Lymphocytes # 1.0 Monocytes # 0.4 Eosinophils # 0.3 Basophils # 0.0 Sodium Potassium Chloride Carbon Dioxide BUN Creatinine Est GFR ( Amer) Est GFR (Non-Af Amer) BUN/Creatinine Ratio Glucose Calculated Osmolality Calcium Phosphorus Magnesium Tumor Marker AFP CA 19-9 Antigen Prostate Specific Ag Vitamin B12 Folate Pleural Fluid Volume 950.0 Pleural Appearance Cloudy A Pleural pH 8.00 Pleural RBC 0.021 H Pleural Tot Nuc Cell 932 Pleural Neutrophils 15.0 Pleural Lymphocytes % 69.0 Pleural Monocytes % 9.0 Pleural Other Cells % 7.0 Pleural Total Protein 3.7 Pleural LDH 623 Pleural Glucose 79 GASTON, Poly Interpret 07/27/18 06:04 WBC RBC Hgb Hct MCV MCH MCHC RDW Plt Count MPV Immature Gran % Seg Neutrophils % Lymphocytes % Monocytes % Eosinophils % Basophils % Neutrophils # Lymphocytes # Monocytes # Eosinophils # Basophils # Sodium 138 Potassium 3.7 Chloride 107 Carbon Dioxide 24 BUN 11 Creatinine 0.54 L Est GFR ( Amer) > 60 Est GFR (Non-Af Amer) > 60 BUN/Creatinine Ratio 20 Glucose 96 Calculated Osmolality 285 Calcium 8.3 L Phosphorus 2.8 Magnesium 1.8 Tumor Marker AFP CA 19-9 Antigen Prostate Specific Ag Vitamin B12 Folate Pleural Fluid Volume Pleural Appearance Pleural pH Pleural RBC Pleural Tot Nuc Cell Pleural Neutrophils Pleural Lymphocytes % Pleural Monocytes % Pleural Other Cells % Pleural Total Protein Pleural LDH Pleural Glucose GASTON, Poly Interpret - Impressions Impressions Thoracentesis 07/26/18 07:56 IMPRESSION: Successful ultrasound guided thoracentesis. D/ / Gennaro Bah MD / Gennaro Bah MD Interpreting Provider: Gennaro Bah MD Chest X-Ray 07/26/18 09:41 IMPRESSION: Slight decrease in size of patient's right-sided pleural effusion with no evidence for pneumothorax. D/ / 07/26/2018 10:10:27 Be Chambers MD / [email or web address] Interpreting Provider: Be Chambers MD - ABG Interpretation ABG results: PT/INR, D-dimer PT 14.5 Seconds (9.4-12.1) H 07/24/18 10:40 Consult Discharge Plan - Plan Referrals: Sakina Castellano MD [Primary Care Provider] - Prescriptions: OxyCODONE Immed Rel [Roxicodone 5 MG] 5 mg PO Q4HR PRN 4 Days #16 tablet PRN Reason: Pain LORazepam Oral Conc [Ativan Oral Conc] 1 mg PO Q6HR PRN 4 Days #15 mls PRN Reason: anxiety/restlessness Prochlorperazine Maleate [Compazine] 10 mg PO Q6HR PRN 4 Days #12 tablet PRN Reason: Nausea LORazepam [Lorazepam] 1 mg PO Q6H PRN 4 Days #12 tablet PRN Reason: anxiety/restlessness MORPHINE SUL Oral CONC [Roxanol Oral Conc] 5 mg PO Q4H PRN 4 Days #15 oral.syg PRN Reason: pain/dyspnea
[2018-07-27] MEDS: Acetaminophen 325 MG TABLET PO PRN (10:16)
[2018-07-27] MEDS: Sucralfate 1 GM TABLET PO SCH (10:16)
[2018-07-27 10:31] VITALS: BP 127/75
--- NOTE | 2018-07-27 13:24 | Physician Discharge Referral ---
- Diagnosis (1) Pancreatic mass Priority: Primary Status: Acute (2) Liver metastasis Priority: Primary Status: Acute (3) Malignant pleural effusion Priority: Primary Status: Acute (4) Anemia Priority: Primary Status: Acute (5) History of developmental delay Priority: Primary Status: Chronic (6) History of DVT (deep vein thrombosis) Priority: Primary Status: Chronic - Transfer Medications Prescriptions: OxyCODONE Immed Rel [Roxicodone 5 MG] 5 mg PO Q4HR PRN 4 Days #16 tablet PRN Reason: Pain LORazepam Oral Conc [Ativan Oral Conc] 1 mg PO Q6HR PRN 4 Days #15 mls PRN Reason: anxiety/restlessness Prochlorperazine Maleate [Compazine] 10 mg PO Q6HR PRN 4 Days #12 tablet PRN Reason: Nausea LORazepam [Lorazepam] 1 mg PO Q6H PRN 4 Days #12 tablet PRN Reason: anxiety/restlessness MORPHINE SUL Oral CONC [Roxanol Oral Conc] 5 mg PO Q4H PRN 4 Days #15 oral.syg PRN Reason: pain/dyspnea Home Medications: Atorvastatin [Lipitor] 40 mg PO HS 12/04/16 [History] Docusate Sodium [Stool Softener] 100 mg PO BID 12/04/16 [History] Folic Acid 1 mg PO DAILY 12/04/16 [History] Loratadine [Allergy Relief] 10 mg PO DAILY 12/04/16 [History] Multivit,Th Iron,Other Min [Thera-M] 1 tab PO QAM 12/04/16 [History] Omeprazole [PriLOSEC] 20 mg PO MOWEFR 12/04/16 [History] Potassium Chloride [K-Tab ER] 20 meq PO DAILY 12/04/16 [History] Sennosides/Docusate Sodium [Senna-S Tablet] 1 tab PO QAM 12/04/16 [History] Sertraline [Zoloft] 50 mg PO DAILY 12/04/16 [History] Sucralfate [Carafate] 1 gm PO BID 12/04/16 [History] Ciprofloxacin [Cipro] 500 mg PO BID 7 Days #14 tablet 07/23/18 [Rx] Acetaminophen [Tylenol] 1,000 mg PO TID PRN 07/26/18 [History] Ascorbate Calcium [Vitamin C] 500 mg PO DAILY 07/26/18 [History] Fluorouracil [Efudex] 1 appl TP DAILY 07/26/18 [History] Iron Polysaccharide Complex [Pro Fe] 180 mg PO DAILY 07/26/18 [History] Levothyroxine [Synthroid] 75 mcg PO QAM 07/26/18 [History] Lurasidone HCl [Latuda] 80 mg PO HS 07/26/18 [History] Mirtazapine [Remeron] 15 mg PO HS 07/26/18 [History] Polyethylene Glycol 3350 [MiraLAX Powder Bulk 17.9 Oz] 17 gm PO BID 07/26/18 [History] Sertraline [Zoloft] 100 mg PO DAILY 07/26/18 [History] LORazepam Oral Conc [Ativan Oral Conc] 1 mg PO Q6HR PRN 4 Days #15 mls 07/27/18 [Rx] LORazepam [Lorazepam] 1 mg PO Q6H PRN 4 Days #12 tablet 07/27/18 [Rx] MORPHINE SUL Oral CONC [Roxanol Oral Conc] 5 mg PO Q4H PRN 4 Days #15 oral.syg 07/27/18 [Rx] OxyCODONE Immed Rel [Roxicodone 5 MG] 5 mg PO Q4HR PRN 4 Days #16 tablet 07/27/18 [Rx] Prochlorperazine Maleate [Compazine] 10 mg PO Q6HR PRN 4 Days #12 tablet 07/27/18 [Rx] Allergies/Adverse Reactions: Allergy/AdvReac Type Severity Reaction Status Date / Time No Known Allergies Allergy Verified 07/26/18 08:33 - Respiratory Orders Smoking Cessation: Smoking cessation has been advised. For more information, call the [place] Tobacco Quit Line at 3-699-OGYG-NOW. CERTIFICATION: I certify that the transfer of the above named patient to an Extended Care Facility is necessary for the continuing treatment of the diagnosis listed. The above information is true and accurate reflection of patient's current condition. Confidential - Redisclosure prohibited without a patient's written consent.
[2018-07-28 05:32] LABS: Kappa Qnt Free Light Chains 8.66 mg/dL (0.33-1.94); Lambda Qnt Free Light Chains 6.6 mg/dL (0.57-2.63)
[2018-07-28 09:12] LABS: Beta Globulin (PEP) 0.89 g/dL (0.48-1.10)
[2018-07-28 13:49] LABS: IFE Reflexed NOT DONE
== END 2018-07-27 14:32 | disposition hospice, home (50) | DRG 436 ==
LOC: EMEROOARM 13:40 → 3ANU 13:40 → OBSVTOIN 22:31 → 3ANU 23:00
PROVIDERS: ADMIT Internal Medicine; ATTEND Internal Medicine

== ENCOUNTER 2019-05-18 10:29 | Inpatient (IN) ==
[2019-05-18] MEDS ORDERED: *HR* LORazepam Oral Conc 2 MG/ML SL PRN (13:28)
[2019-05-18] MEDS ORDERED: Morphine Sulfate Oral CONC 10 MG/0.5 ML ORAL.SYG SL PRN (13:35)
[2019-05-18] MEDS ORDERED: Acetaminophen 325 MG TABLET PO PRN (13:36)
[2019-05-18] MEDS ORDERED: Baclofen 10 MG TABLET PO PRN (13:38)
[2019-05-18] MEDS ORDERED: Bisacodyl 10 MG RECTAL SUPPOSITORY RC PRN (13:40)
[2019-05-18] MEDS: *HR* FentaNYL PATCH 25 MCG PATCH TD SCH (14:45)
[2019-05-18] MEDS: Sucralfate 1 GM TABLET PO SCH (18:11)
[2019-05-18] MEDS: Haloperidol Oral Conc 10 MG/5 ML UDC PO SCH (18:11)
[2019-05-18] MEDS: Sennosides/Docusate Sodium TABLET PO SCH (20:56)
[2019-05-18] MEDS: Mirtazapine 15 MG TABLET PO SCH (20:56)
[2019-05-19] MEDS: Haloperidol Oral Conc 10 MG/5 ML UDC PO SCH ×4 (00:07→16:59)
[2019-05-19] MEDS: Loratadine 10 MG TABLET PO SCH (08:19)
[2019-05-19] MEDS: Sennosides/Docusate Sodium TABLET PO SCH ×2 (08:19→20:10)
[2019-05-19] MEDS: Sucralfate 1 GM TABLET PO SCH ×2 (08:19→16:59)
[2019-05-19] MEDS: Lactulose Oral Soln 20 GM/30 ML UDC PO SCH (08:20)
[2019-05-19] MEDS: Mirtazapine 15 MG TABLET PO SCH (20:10)
[2019-05-20] MEDS: Haloperidol Oral Conc 10 MG/5 ML UDC PO SCH ×5 (00:16→23:46)
[2019-05-20] MEDS: Loratadine 10 MG TABLET PO SCH (09:39)
[2019-05-20] MEDS: Sucralfate 1 GM TABLET PO SCH ×2 (09:39→15:47)
[2019-05-20] MEDS: Lactulose Oral Soln 20 GM/30 ML UDC PO SCH (09:39)
[2019-05-20] MEDS: Sennosides/Docusate Sodium TABLET PO SCH ×2 (09:39→20:10)
[2019-05-20] MEDS: Mirtazapine 15 MG TABLET PO SCH (20:10)
[2019-05-21] MEDS: Haloperidol Oral Conc 10 MG/5 ML UDC PO SCH ×4 (05:19→23:28)
[2019-05-21] MEDS: Loratadine 10 MG TABLET PO SCH (07:50)
[2019-05-21] MEDS: Lactulose Oral Soln 20 GM/30 ML UDC PO SCH (07:50)
[2019-05-21] MEDS: Sucralfate 1 GM TABLET PO SCH ×2 (07:50→17:22)
[2019-05-21] MEDS: Sennosides/Docusate Sodium TABLET PO SCH ×2 (07:51→20:57)
[2019-05-21] MEDS: *HR* FentaNYL PATCH 25 MCG PATCH TD SCH (13:33)
[2019-05-21] MEDS: Mirtazapine 15 MG TABLET PO SCH (20:57)
[2019-05-22] MEDS: Haloperidol Oral Conc 10 MG/5 ML UDC PO SCH ×3 (05:53→16:36)
[2019-05-22] MEDS ORDERED: *HR* HYDROmorphone (PF) 1 MG/ML SYRINGE IVP ONE (08:08)
[2019-05-22] MEDS: Loratadine 10 MG TABLET PO SCH (08:20)
[2019-05-22] MEDS: Sucralfate 1 GM TABLET PO SCH ×2 (08:20→16:36)
[2019-05-22] MEDS: Sennosides/Docusate Sodium TABLET PO SCH ×2 (08:20→20:31)
[2019-05-22] MEDS: Lactulose Oral Soln 20 GM/30 ML UDC PO SCH (08:20)
[2019-05-22] MEDS: Mirtazapine 15 MG TABLET PO SCH (20:32)
[2019-05-23] MEDS: Haloperidol Oral Conc 10 MG/5 ML UDC PO SCH ×3 (00:02→11:32)
[2019-05-23 07:27] VITALS: BP 92/59
[2019-05-23] MEDS: Sennosides/Docusate Sodium TABLET PO SCH (07:56)
[2019-05-23] MEDS: Sucralfate 1 GM TABLET PO SCH (07:58)
[2019-05-23] MEDS: Loratadine 10 MG TABLET PO SCH (07:58)
[2019-05-23] MEDS: Lactulose Oral Soln 20 GM/30 ML UDC PO SCH (08:00)
== END 2019-05-23 12:55 | disposition hospice, inpatient (51) | DRG 951 ==
LOC: 2ANU 12:15
PROVIDERS: ADMIT Internal Medicine Hospice and Palliative Medicine; ATTEND Internal Medicine Hospice and Palliative Medicine